=== PATIENT | female | born 1980 | race Caucasian/White ===

== ENCOUNTER 2016-12-25 11:32 | Emergency (ER) | payer BC ==
[2016-12-25 11:39] VITALS: BP 143/96; BMI 44.9
--- NOTE | 2016-12-25 11:52 | DR.GENAD ---
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 She denies a history of cardiac disease.She denies productive cough and fever. She denies a history of cigarette use. She sleeps on two to three pillows and can walk only a short distance before becoming SOB. Chief Complaint:: PT C/O DIFF BREATHING AND SOB. PT STATES SHE HAD A PAC PLACED TO LT LAST WEDNESDAY. PT STATES SHE HAS BEEN HAVING RT SIDED CHEST PAIN AND AND DIFF BREATHING AND TAKING A DEEP BREATH. PT STATES THE TROUBLE BREATHING HAS BEEN GOING SINCE WEDNESDAY. PT WENT TO PCP AND WAS TOLD TO GO TO THE ER HE WAS WORRIED ABOUT A POSSIBLE BLOT. - Source History Provided: Patient - Mode of Arrival Mode of Arrival: Ambulatory - Timing Onset of Chief Complaint: 12/18/16 PMH - PMH Past Medical History: Yes Past Medical History: Asthma, COPD, Dyslipidemia, Headaches, Hypertension Past Medical History Comment: MITRAL VALVE PROLAPSE, INSOMMNIA Past Surgical History: Yes Surgical History: Cholecystectomy, Ortho Surgery, Tonsillectomy Past Surgical History Comment: PAC (LT CW), KNEE AND FOOT, LAP BAND, HERNIA REPAIR X3 - Family History History of Family Medical Conditions: Yes Family Medical History: Diabetes Mellitus, Cancer, [place], Coronary Artery Disease, Heart Failure, Sudden Cardiac , Hypertension - Social History Does any household member use tobacco: No Alcohol Use: None Do you use any recreational Drugs:: No Lives With: Family Lives Where: Home - infectious screening In the last 2 months have you had wt loss of >10#?: NO Have you had fever, night sweats or hemotysis?: No Have you traveled outside the country in the last 6 months?: No Isolation: Standard ROS - Review of Systems Constitutional: negative: Diaphoresis Eyes: No Symptoms Reported ENTM: No Symptoms Reported Respiratoy: No Symptoms Reported, Short of Breath Cardiovascular: No Symptoms Reported Gastrointestinal/Abdominal: No Symptoms Reported Genitourinary: No Symptoms Reported Neurological: No Symptoms Reported Musculoskeletal: No Symptoms Reported Integumentary: No Symptoms Reported Hematologic/Lymphatic: No Symptoms Reported Endocrine: No Symptoms Reported Psychiatric: No Symptoms Reported All Other Systems: Reviewed and Negative PE - Vital Signs Vitals: Temperature 97.5 F Pulse Rate 72 Respiratory Rate 22 Blood Pressure 143/96 O2 Sat by Pulse Oximetry 100 - General Limitations: No Limitations General Appearance: Alert, In No Apparent Distress - Head Head Exam: Normal Inspection, Atraumatic - Eyes Eye exam: Normal Appearance, PERRL, EOMI - ENT ENT Exam: Normal Exam External Ear Exam: Normal External Inspection TM/Canal Exam: Bilateral Normal Nose Exam: Normal Nose Exam Mouth Exam: Normal Inspection Throat Exam: Normal Inspection - Neck Neck Exam: Normal Inspection, Full ROM - Chest Chest Inspection: Normal Inspection - Respiratory Respiratory Exam: Normal Lung Sounds Bilat Respiratory Exam: Bilateral Clear to Auscultation - Cardiovascular Cardiovascular Exam: Regular Rate, Normal Rhythm - Abdominal Exam Abdominal Exam: Normal Inspection Abdominal Tenderness: negative: RUQ, RLQ, LUQ, LLQ, Epigastrium, Suprapubic, Diffuse, Mild, Moderate, Severe, Other - Extremities Extremities Exam: Normal Inspection, Full ROM - Back Back Exam: Normal Inspection - Psychiatric Psychiatric Exam: Normal Affect, Normal Mood, Agitated - Skin Skin Exam: Warm, Dry, Intact, Normal Color Course - Reevaluation 1st: Unchanged ROR - Labs Reviewed Laboratory Results Reviewed?: Yes (D Dimer 842) Result Diagrams: 12/25/16 12:05 12/25/16 12:05 Laboratory: WBC 5.4 X10^3/uL (3.6-10.0) 12/25/16 12:05 RBC 5.19 X10^6/uL (3.5-5.4) 12/25/16 12:05 Hgb 13.8 g/dL (12.0-16.0) 12/25/16 12:05 Hct 41.7 % (36.0-47.0) 12/25/16 12:05 MCV 80.3 fL (80.0-100.0) 12/25/16 12:05 MCH 26.6 pg (27.0-34.0) L 12/25/16 12:05 MCHC 33.2 g/dL (33.0-35.0) 12/25/16 12:05 RDW 14.5 % (11.6-16.5) 12/25/16 12:05 Plt Count 291 X10^3/uL (150.0-450.0) 12/25/16 12:05 MPV 7.2 fL (7.4-11.0) L 12/25/16 12:05 Neut % 64.4 % (42.0-75.0) 12/25/16 12:05 Lymph % 25.2 % (21.0-51.0) 12/25/16 12:05 [place] % 7.4 % (0.0-13.0) 12/25/16 12:05 Eos % 2.4 % (0.9-2.9) 12/25/16 12:05 Baso % 0.6 % (0.2-1.0) 12/25/16 12:05 Neut # 3.5 x10^3/uL (2.2-4.8) 12/25/16 12:05 Lymph # 1.3 X10^3/uL (1.3-2.9) 12/25/16 12:05 [place] # 0.4 x10^3/uL (0.3-0.8) 12/25/16 12:05 Eos # 0.1 x10^3/uL (0.0-0.2) 12/25/16 12:05 Baso # 0.0 X10^3/uL (0.0-0.1) 12/25/16 12:05 Absolute Nucleated RBC 0.0 /100WBC 12/25/16 12:05 D-Dimer 842 ng/mL (0-400) H* 12/25/16 12:05 Sodium 138 mmol/L (136-145) 12/25/16 12:05 Corrected Sodium TNP 12/25/16 12:05 Potassium 3.7 mmol/L (3.5-5.1) 12/25/16 12:05 Chloride 104 mmol/L (98-107) 12/25/16 12:05 Carbon Dioxide 26.3 mmol/L (21-32) 12/25/16 12:05 BUN 10 mg/dL (7-18) 12/25/16 12:05 Creatinine 0.97 mg/dL (0.55-1.02) 12/25/16 12:05 Est GFR (MDRD) Af Amer > 60 (>60) 12/25/16 12:05 Est GFR (MDRD) Non-Af > 60 (>60) 12/25/16 12:05 Glucose 93 mg/dL (65-99) 12/25/16 12:05 Calcium 8.7 mg/dL (8.5-10.1) 12/25/16 12:05 Corrected Calcium TNP 12/25/16 12:05 Total Bilirubin 0.50 mg/dL (0.2-1.0) 12/25/16 12:05 AST 11 Units/L (15-37) L 12/25/16 12:05 ALT 21 Units/L (12-78) 12/25/16 12:05 Alkaline Phosphatase 73 Units/L (46-116) 12/25/16 12:05 B-Natriuretic Peptide 17.2 pg/mL (0-79) 12/25/16 12:05 Total Protein 7.4 g/dL (6.4-8.2) 12/25/16 12:05 Albumin 3.6 g/dL (3.4-5.0) 12/25/16 12:05 Globulin 3.8 g/dL (2.5-4.5) 12/25/16 12:05 Albumin/Globulin Ratio 0.9 Ratio (1.1-2.1) L 12/25/16 12:05 - XRAY XRAY Interpreted by: Radiologist (Chest: No acute cardiopulmonary disease. CTA: There is no evidence for acute pulmonary thromboembolic disease. Examination of the mediastinum demonstrated no evidence for mediastinal masses, lymphadenopathy or hilar lumphadenopathy. No pleural effusions are identified. Those portions of the upper abdominal organs visualized were within normal limits. There is a properly oriented gastric lap bank present. No skelatal abnormailty is identified. Examination of the lungs burgos demonstrated no significant nodules, alveolar infiltrates, or masses. ) - Diagnosis Discharge Problem: Dyspnea, unspecified Qualifiers: Dyspnea type: dyspnea on exertion Qualified Code(s): R06.09 - Other forms of dyspnea - Discharge Plan Condition: Stable - Follow ups/Referrals Follow ups/Referrals: BRIAN SANFORD [Primary Care Provider] - 3 days - Instructions
[2016-12-25 12:15] LABS: BASOPHILS % (AUTO) 0.6 % (0.2-1.0); EOSINOPHILS # (AUTO) 0.1 x10^3/uL (0.0-0.2); EOSINOPHILS % (AUTO) 2.4 % (0.9-2.9); HEMATOCRIT 41.7 % (36.0-47.0); HEMOGLOBIN 13.8 g/dL (12.0-16.0); LYMPHOCYTES # (AUTO) 1.3 X10^3/uL (1.3-2.9); LYMPHOCYTES % (AUTO) 25.2 % (21.0-51.0); MEAN CORPUSCULAR HEMOGLOBIN 26.6 pg (27.0-34.0); MEAN CORPUSCULAR HGB CONC 33.2 g/dL (33.0-35.0); MEAN CORPUSCULAR VOLUME 80.3 fL (80.0-100.0); MEAN PLATELET VOLUME 7.2 fL (7.4-11.0); MONOCYTES # (AUTO) 0.4 x10^3/uL (0.3-0.8); MONOCYTES % (AUTO) 7.4 % (0.0-13.0); NEUTROPHILS # (AUTO) 3.5 x10^3/uL (2.2-4.8); NEUTROPHILS % (AUTO) 64.4 % (42.0-75.0); PLATELET COUNT 291 X10^3/uL (150.0-450.0); RED BLOOD COUNT 5.19 X10^6/uL (3.5-5.4); RED CELL DISTRIBUTION WIDTH 14.5 % (11.6-16.5); WHITE BLOOD COUNT 5.4 X10^3/uL (3.6-10.0)
[2016-12-25 12:26] LABS: ALANINE AMINOTRANSFERASE 21 Units/L (12-78); ALBUMIN 3.6 g/dL (3.4-5.0); ALKALINE PHOSPHATASE 73 Units/L (46-116); ASPARTATE AMINO TRANSFERASE 11 Units/L (15-37); BLOOD UREA NITROGEN 10 mg/dL (7-18); CALCIUM 8.7 mg/dL (8.5-10.1); CARBON DIOXIDE 26.3 mmol/L (21-32); CHLORIDE 104 mmol/L (98-107); CREATININE 0.97 mg/dL (0.55-1.02); SODIUM 138 mmol/L (136-145); TOTAL PROTEIN 7.4 g/dL (6.4-8.2); eGFR BLACK RACES > 60 (>60); eGFR NON BLACK RACES > 60 (>60)
--- NOTE | 2016-12-25 12:37 | RAD ---
HISTORY: Dyspnea Study: Chest PA and lateral Comparison: January 29, 2014 report Findings: The trachea is midline. The cardiac silhouette is upper limits normal in size. No congestive heart f ailure is noted.. The lungs are clear without focal infiltrate or effusion. The bony thorax is unre markable. There is a port present on the left. Its tip is likely just proximal to the junction of th e left innominate vein and superior vena cava. IMPRESSION: 1. No acute cardiopulmonary disease. Reported By:
[2016-12-25 12:44] LABS: D DIMER 842 ng/mL (0-400)
[2016-12-25 12:45] LABS: B-TYPE NATRIURETIC PEPTIDE 17.2 pg/mL (0-79)
[2016-12-25] MEDS ORDERED: NS 100 ML IV 100 ML IV ONE (13:27)
--- NOTE | 2016-12-25 14:39 | CT ---
HISTORY: Elevated D-dimer Study: CTA chest with contrast for pulmonary embolus Comparison: None Technique: Axial post-contrast images with coronal, sagittal, and 3 dimensional maximum intensity pro jection images obtained in evaluated . Dose reduction procedures were used with MA/kv adjusted for nasrin dy size. Findings: There is no evidence for acute pulmonary thromboembolic disease. Examination of the mediastinum demon strated no evidence for mediastinal masses, lymphadenopathy, or hilar lymphadenopathy. No pleural eff usions are identified. Those portions of the upper abdominal organs visualized were within normal aragon its. There is a properly oriented gastric lap band present. No skeletal abnormality is identified. Ex amination of the lung burgos demonstrated no significant nodules, alveolar infiltrates, or masses. The initial injection was made through a left-sided power port. This resulted in pain and swelling ar ound the power port resected coal. Contrast can be seen in the wrist septal and a power port and ther e is some extravasation of contrast into the subcutaneous tissues surrounding the port. Subsequently and alternate route of contrast injection was successfully used and the study completed. The emergenc y room was advised of the power port malfunction. IMPRESSION: No evidence for acute pulmonary thromboembolic disease Lungs clear Reported By:
== END 2016-12-25 15:28 | disposition home or self-care (01) ==
LOC: ER 11:49
DX: R06.09 Other forms of dyspnea (principal); R79.1 Abnormal coagulation profile
CPT/HCPCS: 36415; 71020; 71275; 80053; 83880; 85025; 85378; 96365; 99283; A4222

== ENCOUNTER → 2017-07-08 | Outpatient (CLI) | payer BC | LOC: RAD 13:13 | PROVIDERS: ATTEND Internal Medicine Cardiovascular Disease | DX: I34.0 Nonrheumatic mitral (valve) insufficiency (principal) | CPT/HCPCS: 93306 ==

== ENCOUNTER 2019-02-17 10:16 | Observation (INO) ==
[2019-02-17 10:22] VITALS: BMI 45.8
[2019-02-17] MEDS ORDERED: SOLU-Medrol 125 MG VIAL IVP ONE ×2 (10:31→20:58)
[2019-02-17] MEDS ORDERED: SOLU-Medrol 125 MG VIAL ONE ×2 (10:31→21:09)
[2019-02-17] MEDS ORDERED: MAGNESIUM SULFATE 1 GRAM/100 mL PREMIX 1 G/100 ML BAG IV ONE ×2 (10:42→10:46)
--- NOTE | 2019-02-17 10:52 | DR.GENAD ---
HPI Time Seen Time Seen by Provider: 02/17/19 10:46 PCP Primary Care Physician: lindy Complaint/Symptoms Chief Complaint:: patient stated she has been coughing and wheezing for 5 days. stated last time she was like this she got a mag rider and solumedrol. pt stated she could not be admited due to kids Source History Provided: Patient Mode of Arrival Mode of Arrival: Ambulatory Timing Onset of Chief Complaint: 02/17/19 PMH PMH Past Medical History: Yes Past Medical History: Asthma, COPD, Dyslipidemia, Headaches and Hypertension Past Surgical History: Yes Surgical History: Cholecystectomy, Ortho Surgery and Tonsillectomy Family History History of Family Medical Conditions: Yes Family Medical History: Diabetes Mellitus, Cancer, [place], Coronary Artery Disease, Heart Failure, Sudden Cardiac and Hypertension Social History Does patient currently use any type of tobacco product: No Have you used tobacco products in the last 12 months: No Type of Tobacco Use: None Does any household member use tobacco: No Alcohol Use: None Do you use any recreational Drugs:: No Lives With: Family Lives Where: Home infectious screening In the last 2 months have you had wt loss of >10#?: NO Have you had fever, night sweats or hemotysis?: No Have you traveled outside the country in the last 6 months?: No Isolation: Standard PE Vital Signs Vitals: Temperature 98.6 F Pulse Rate [Right Brachial] 70 Pulse Rate 77 Respiratory Rate 20 Blood Pressure [Right Arm] 139/85 Blood Pressure 143/96 O2 Sat by Pulse Oximetry 98 ROR Labs Reviewed Result Diagrams: 02/17/19 10:55 02/17/19 10:55 Laboratory: WBC 6.1 X10^3/uL (3.6-10.0) 02/17/19 10:55 RBC 5.07 X10^6/uL (3.5-5.4) 02/17/19 10:55 Hgb 13.1 g/dL (12.0-16.0) 02/17/19 10:55 Hct 40.1 % (36.0-47.0) 02/17/19 10:55 MCV 79.1 fL (80.0-100.0) L 02/17/19 10:55 MCH 25.8 pg (27.0-34.0) L 02/17/19 10:55 MCHC 32.7 g/dL (33.0-35.0) L 02/17/19 10:55 RDW 15.6 % (11.6-16.5) 02/17/19 10:55 Plt Count 411 X10^3/uL (150.0-450.0) 02/17/19 10:55 Plt Count Comment Adequate (ADEQUATE) 02/17/19 10:55 MPV 6.8 fL (7.4-11.0) L 02/17/19 10:55 Neut % (Auto) 70.2 % (42.0-75.0) 02/17/19 10:55 Lymph % (Auto) 21.3 % (21.0-51.0) 02/17/19 10:55 [place] % (Auto) 7.5 % (0.0-13.0) 02/17/19 10:55 Eos % (Auto) 0.2 % (0.9-2.9) L 02/17/19 10:55 Baso % (Auto) 0.8 % (0.2-1.0) 02/17/19 10:55 Neut # (Auto) 4.3 x10^3/uL (2.2-4.8) 02/17/19 10:55 Lymph # (Auto) 1.3 X10^3/uL (1.3-2.9) 02/17/19 10:55 [place] # (Auto) 0.5 x10^3/uL (0.3-0.8) 02/17/19 10:55 Eos # (Auto) 0.0 x10^3/uL (0.0-0.2) 02/17/19 10:55 Baso # (Auto) 0.0 X10^3/uL (0.0-0.1) 02/17/19 10:55 Absolute Nucleated RBC 0.0 /100WBC 02/17/19 10:55 Plt Morphology Comment Normal (NORMAL) 02/17/19 10:55 RBC Morphology Abnormal (NORMAL) A 02/17/19 10:55 Hypochromasia Slight A 02/17/19 10:55 Sample Site Right radial 02/17/19 12:36 ABG pH 7.580 (7.35-7.45) H* 02/17/19 12:36 ABG pCO2 25.0 mmHg (35.0-45.0) L 02/17/19 12:36 ABG pO2 133.0 mmHg (80.0-100.0) H 02/17/19 12:36 ABG HCO3 23.4 mmol/L (22-26) 02/17/19 12:36 ABG O2 Saturation 99.0 % (90-100) 02/17/19 12:36 ABG Base Excess 2.6 mmol/L (-2.0-2.0) H 02/17/19 12:36 Adam Test Pos 02/17/19 12:36 A-a Gradient 35.0 mmHg 02/17/19 12:36 FiO2 28.0 02/17/19 12:36 Blood Gas Comments Alysha well aw 02/17/19 12:36 Sodium 138 mmol/L (136-145) 02/17/19 10:55 Corrected Sodium TNP 02/17/19 10:55 Potassium 3.6 mmol/L (3.5-5.1) 02/17/19 10:55 Chloride 102 mmol/L (98-107) 02/17/19 10:55 Carbon Dioxide 26.2 mmol/L (21-32) 02/17/19 10:55 BUN 19 mg/dL (7-18) H 02/17/19 10:55 Creatinine 1.02 mg/dL (0.55-1.02) 02/17/19 10:55 Est GFR (MDRD) Af Amer > 60 (>60) 02/17/19 10:55 Est GFR (MDRD) Non-Af > 60 (>60) 02/17/19 10:55 Glucose 103 mg/dL (65-99) H 02/17/19 10:55 Calcium 9.1 mg/dL (8.5-10.1) 02/17/19 10:55 Corrected Calcium TNP 02/17/19 10:55 Magnesium 3.3 mg/dL (1.7-2.9) H 02/17/19 10:55 Total Bilirubin 0.30 mg/dL (0.2-1.0) 02/17/19 10:55 AST 16 Units/L (15-37) 02/17/19 10:55 ALT 26 Units/L (12-78) 02/17/19 10:55 Alkaline Phosphatase 95 Units/L (46-116) 02/17/19 10:55 Total Protein 7.7 g/dL (6.4-8.2) 02/17/19 10:55 Albumin 4.0 g/dL (3.4-5.0) 02/17/19 10:55 Globulin 3.7 g/dL (2.5-4.5) 02/17/19 10:55 Albumin/Globulin Ratio 1.1 Ratio (1.1-2.1) 02/17/19 10:55 Opioid Opioid Risk Tool Total: 0 Total Score Risk Category: Low Risk Copyright: Frank COELHO predicting aberrant behaviors Diagnosis Discharge Problem: Bronchitis Acute asthma exacerbation Qualifiers: Asthma severity: moderate Asthma persistence: persistent Qualified Code(s): J45.41 - Moderate persistent asthma with (acute) exacerbation Instructions Instructions: Acute Bronchitis, Adult, [id number] Asthma Attack Prevention, Adult Forms: Excuse From Work Patient Portal
[2019-02-17 11:05] LABS: BASOPHILS % (AUTO) 0.8 % (0.2-1.0); EOSINOPHILS % (AUTO) 0.2 % (0.9-2.9); HEMATOCRIT 40.1 % (36.0-47.0); HEMOGLOBIN 13.1 g/dL (12.0-16.0); LYMPHOCYTES # (AUTO) 1.3 X10^3/uL (1.3-2.9); LYMPHOCYTES % (AUTO) 21.3 % (21.0-51.0); MEAN CORPUSCULAR HEMOGLOBIN 25.8 pg (27.0-34.0); MEAN CORPUSCULAR HGB CONC 32.7 g/dL (33.0-35.0); MEAN CORPUSCULAR VOLUME 79.1 fL (80.0-100.0); MEAN PLATELET VOLUME 6.8 fL (7.4-11.0); MONOCYTES # (AUTO) 0.5 x10^3/uL (0.3-0.8); MONOCYTES % (AUTO) 7.5 % (0.0-13.0); NEUTROPHILS # (AUTO) 4.3 x10^3/uL (2.2-4.8); NEUTROPHILS % (AUTO) 70.2 % (42.0-75.0); PLATELET COUNT 411 X10^3/uL (150.0-450.0); RED BLOOD COUNT 5.07 X10^6/uL (3.5-5.4); RED CELL DISTRIBUTION WIDTH 15.6 % (11.6-16.5); WHITE BLOOD COUNT 6.1 X10^3/uL (3.6-10.0)
[2019-02-17 11:16] LABS: HYPOCHROMASIA SLIGHT; PLATELET MORPHOLOGY COMMENT NORMAL (NORMAL)
[2019-02-17 11:17] LABS: ALANINE AMINOTRANSFERASE 26 Units/L (12-78); ALKALINE PHOSPHATASE 95 Units/L (46-116); ASPARTATE AMINO TRANSFERASE 16 Units/L (15-37); BLOOD UREA NITROGEN 19 mg/dL (7-18); CALCIUM 9.1 mg/dL (8.5-10.1); CARBON DIOXIDE 26.2 mmol/L (21-32); CHLORIDE 102 mmol/L (98-107); CREATININE 1.02 mg/dL (0.55-1.02); SODIUM 138 mmol/L (136-145); TOTAL PROTEIN 7.7 g/dL (6.4-8.2); eGFR NON BLACK RACES > 60 (>60)
--- NOTE | 2019-02-17 12:10 | RAD ---
HISTORY: 38-year-old female with history of asthma and COPD presents with stridor. Study: Frontal view of the chest. Comparison: CT chest 11/04/2018 Findings: Interval placement right chest chemo port via subclavian approach with distal tip overlying the superior cavoatrial junction. Partially imaged laparoscopic gastric band. The trachea is midline. The cardiac silhouette is stable. The lungs are clear without focal consolidation, effusion or pneumothorax. Soft tissues are unremarkable. Osseous structures are unremarkable. IMPRESSION: 1. No acute cardiopulmonary disease. Reported By:
[2019-02-17] MEDS ORDERED: DUONEB 0.5 MG/3 MG ONE ×2 (12:34→22:26)
[2019-02-17] MEDS ORDERED: DUONEB 0.5 MG/3 MG NEB ONE ×2 (12:38→20:58)
[2019-02-17 12:45] LABS: ABG BASE EXCESS 2.6 mmol/L (-2.0-2.0); ABG HCO3 23.4 mmol/L (22-26)
[2019-02-17 12:46] LABS: ABG ALLEN TEST POS
[2019-02-17] MEDS ORDERED: ROCEPHIN VIAL 1 GRAM IV ONE (13:37)
[2019-02-17] MEDS ORDERED: ROCEPHIN VIAL 1 GRAM ONE (14:03)
[2019-02-17] MEDS ORDERED: LASIX PO ONE (14:13)
[2019-02-17] MEDS ORDERED: LASIX ONE (14:14)
[2019-02-17] MEDS ORDERED: NS 1000 ML 1,000 ML IV ONE (20:46)
[2019-02-17] MEDS ORDERED: ZOFRAN INJ 4 MG VIAL IVP ONE (20:55)
[2019-02-17] MEDS ORDERED: TORADOL 30 MG VIAL IVP ONE (20:56)
[2019-02-17] MEDS ORDERED: ZOFRAN INJ 4 MG VIAL ONE (21:08)
[2019-02-17] MEDS ORDERED: NS 1000 ML 1,000 ML ONE (21:08)
[2019-02-17] MEDS ORDERED: TORADOL 30 MG VIAL ONE (21:09)
[2019-02-17 21:15] LABS: AMYLASE 37 Units/L (25-115); LIPASE 109 Units/L (73-393)
--- NOTE | 2019-02-17 21:39 | CT ---
CT head without contrast Indication: Dizziness, headache Technique: Helical CT images of the brain were obtained without IV contrast. Reformatted images in the coronal and sagittal planes were also generated for review. Comparison: 06/08/2014 Findings: Perez-white differentiation is maintained. No visible acute infarction is identified. There is no intracranial hemorrhage, focal or generalized edema, extra-axial collection or mass. Visualized paranasal sinuses and mastoid air cells are clear. Imaged extracranial structures are grossly unremarkable. Impression: No acute intracranial abnormality. Reported By:
--- NOTE | 2019-02-17 21:46 | RAD ---
Chest, 1 view Indication: Shortness of breath, dizziness Comparison: 12/25/2016 Findings: Cardiac silhouette is unremarkable. There are stable metallic hyperdensities overlying the left hemithorax. There is a right subclavian approach Port-A-Cath with tip overlying the SVC. Lungs are essentially clear without focal infiltrates or significant pleural effusion. Impression: No acute chest process. Reported By:
[2019-02-17 21:47] LABS: CKMB % 0.6 % (<4); CREATINE KINASE 164 Units/L (26-192); CREATINE KINASE MB < 1.0 ng/mL (0-4.0); TROPONIN I < 0.02 ng/mL (0-1.5)
[2019-02-17] MEDS ORDERED: REGLAN INJ 10 MG VIAL IVP STA (21:50)
[2019-02-17] MEDS ORDERED: REGLAN INJ 10 MG VIAL ONE (22:42)
[2019-02-17] MEDS ORDERED: BENADRYL INJ 50 MG VIAL IVP STA (22:45)
[2019-02-17] MEDS ORDERED: BENADRYL INJ 50 MG VIAL ONE (22:47)
[2019-02-17 23:06] LABS: ABG BASE EXCESS -0.5 mmol/L (-2.0-2.0); ABG HCO3 22.9 mmol/L (22-26)
[2019-02-17 23:07] LABS: ABG ALLEN TEST POS
[2019-02-17 23:24] LABS: CKMB % 0.7 % (<4); CREATINE KINASE 153 Units/L (26-192); CREATINE KINASE MB < 1.0 ng/mL (0-4.0); TROPONIN I < 0.02 ng/mL (0-1.5)
[2019-02-17] MEDS ORDERED: TYLENOL 325 MG TAB PO PRN (23:50)
[2019-02-17] MEDS ORDERED: TYLENOL 325 MG TAB PO ONE (23:54)
[2019-02-18 00:49] LABS: BILIRUBIN,URINE NEGATIVE (NEGATIVE); BLOOD/HEMOGLOBIN,URINE NEGATIVE (NEGATIVE); GLUCOSE, URINE NEGATIVE (NEGATIVE); KETONES,URINE NEGATIVE (NEGATIVE); LEUKOCYTE ESTERASE ,URINE NEGATIVE (NEGATIVE); NITRITES,URINE NEGATIVE (NEGATIVE); PROTEIN,URINE NEGATIVE (NEGATIVE); UROBILINOGEN,URINE NORMAL (NORMAL)
[2019-02-18] MEDS: DUONEB 0.5 MG/3 MG NEB SCH ×6 (00:49→21:12)
[2019-02-18 00:53] LABS: APPEARANCE,URINE CLEAR (CLEAR); COLOR,URINE YELLOW (YELLOW)
[2019-02-18] MEDS ORDERED: TORADOL 60 MG VIAL IM ONE (01:10)
[2019-02-18] MEDS ORDERED: NS 250 ML IV 250 ML IV ONE (05:26)
[2019-02-18 05:33] LABS: BASOPHILS % (AUTO) 0.1 % (0.2-1.0); HEMATOCRIT 38.5 % (36.0-47.0); HEMOGLOBIN 12.3 g/dL (12.0-16.0); LYMPHOCYTES # (AUTO) 0.6 X10^3/uL (1.3-2.9); MEAN CORPUSCULAR HEMOGLOBIN 25.4 pg (27.0-34.0); MEAN CORPUSCULAR HGB CONC 31.9 g/dL (33.0-35.0); MEAN CORPUSCULAR VOLUME 79.7 fL (80.0-100.0); MEAN PLATELET VOLUME 7.2 fL (7.4-11.0); MONOCYTES # (AUTO) 0.1 x10^3/uL (0.3-0.8); MONOCYTES % (AUTO) 1.1 % (0.0-13.0); NEUTROPHILS # (AUTO) 9.9 x10^3/uL (2.2-4.8); NEUTROPHILS % (AUTO) 92.8 % (42.0-75.0); PLATELET COUNT 380 X10^3/uL (150.0-450.0); RED BLOOD COUNT 4.83 X10^6/uL (3.5-5.4); RED CELL DISTRIBUTION WIDTH 15.6 % (11.6-16.5); WHITE BLOOD COUNT 10.6 X10^3/uL (3.6-10.0)
[2019-02-18] MEDS: FORTAZ or TAZICEF VIAL INJ 1 G in NS 100 ML IV + SPIKE MINIBAG* 100 ML IV SCH ×3 (05:36→21:29)
[2019-02-18 06:09] LABS: BAND NEUTROPHILS % 2 % (0-10); PLATELET MORPHOLOGY COMMENT NORMAL (NORMAL)
[2019-02-18 06:10] LABS: ALANINE AMINOTRANSFERASE 19 Units/L (12-78); ALBUMIN 3.5 g/dL (3.4-5.0); ALKALINE PHOSPHATASE 82 Units/L (46-116); ASPARTATE AMINO TRANSFERASE 12 Units/L (15-37); BLOOD UREA NITROGEN 19 mg/dL (7-18); CARBON DIOXIDE 23.9 mmol/L (21-32); CHLORIDE 104 mmol/L (98-107); CKMB % 0.8 % (<4); COR NA(FOR HYPERGLY) 141 mmol/L (136-145); CREATINE KINASE 123 Units/L (26-192); CREATINE KINASE MB < 1.0 ng/mL (0-4.0); CREATININE 0.87 mg/dL (0.55-1.02); HYPOCHROMASIA SLIGHT; SODIUM 140 mmol/L (136-145); TROPONIN I < 0.02 ng/mL (0-1.5); eGFR NON BLACK RACES > 60 (>60)
[2019-02-18] MEDS ORDERED: POTASSIUM CHL 40 MEQ/NS 0.45% 500 ML IV PRN (06:23)
[2019-02-18] MEDS ORDERED: K-RIDER 10 MEQ/NS 100 ML 10 MEQ/100 ML BAG IV PRN (06:23)
[2019-02-18] MEDS ORDERED: POTASSIUM CHL 60 MEQ/NS 0.45% 500 ML IV PRN (06:23)
[2019-02-18] MEDS ORDERED: POTASSIUM CHLORIDE LIQ 20 MEQ UDC PO PRN (06:23)
[2019-02-18] MEDS ORDERED: MICRO K EXTEN CAP 10 MEQ PO PRN (06:23)
[2019-02-18] MEDS ORDERED: KLOR-CON PO PRN (06:23)
[2019-02-18] MEDS ORDERED: K-DUR TAB 20 MEQ PO PRN (06:23)
--- NOTE | 2019-02-18 08:41 | DR.H&P ---
H&P History & Physical for Day of: H&P Date: 02/18/19 Chief Complaint Chief Complaint: Wheezing, shortness of breath Allergies Allergies Allergy/AdvReac Type Severity Reaction Status Date / Time levofloxacin [From Levaquin] Allergy Verified 02/17/19 10:17 sulfamethoxazole Allergy Verified 02/17/19 10:17 [From Bactrim] trimethoprim [From Bactrim] Allergy Verified 02/17/19 10:17 History of Present Illness History of Present Illness: Pt is a 38 yo f pmhx of Asthma, HTN(pHTN), ERLINDA/MDD presenting after having wheezing and shortness of breath. She reports sx are similar to her asthma exacerbations she gets 2-3 times a year that require hospitalization. Reports cough. Denies fevers, chills, chest pain, abdominal pain, edema. Past Medical History Past Medical History: Asthma, COPD, Dyslipidemia, Headaches and Hypertension Past Surgical History Surgical History: Cholecystectomy, Tonsillectomy and Other Family History Family Medical History: Diabetes Mellitus, Cancer, [place], Coronary Artery Disease, Heart Failure, Sudden Cardiac and Hypertension Social History Does patient currently use any type of tobacco product: No Have you used tobacco products in the last 12 months: No Type of Tobacco Use: None Does any household member use tobacco: No Alcohol Use: None Drug Use: None Medications Home Medications: levofloxacin [From Levaquin] Allergy (Verified 02/17/19 10:17) sulfamethoxazole [From Bactrim] Allergy (Verified 02/17/19 10:17) trimethoprim [From Bactrim] Allergy (Verified 02/17/19 10:17) CONTINUE taking the following medications aripiprazole [Abilify] 5 mg PO DAILY 02/17/19 [History] diazepam [Valium] 5 mg PO HS 02/17/19 [History] diltiazem HCl [Cartia XT] 240 mg PO DAILY 02/17/19 [History] diphenhydramine HCl [Benadryl] 25 mg PO QHS 02/17/19 [History] duloxetine [Cymbalta] 60 mg PO DAILY 02/17/19 [History] lisinopril [Zestril] 2.5 mg PO DAILY 02/17/19 [History] meloxicam [Mobic] 15 mg PO DAILY 02/17/19 [History] mepolizumab [Nucala] 100 mg SUBCUT MONTHLY 02/17/19 [History] pramipexole [Mirapex] 0.5 mg PO HS 02/17/19 [History] Labs Result Diagrams: 02/18/19 05:04 02/18/19 05:04 Labs: Laboratory WBC 10.6 X10^3/uL (3.6-10.0) H 02/18/19 05:04 RBC 4.83 X10^6/uL (3.5-5.4) 02/18/19 05:04 Hgb 12.3 g/dL (12.0-16.0) 02/18/19 05:04 Hct 38.5 % (36.0-47.0) 02/18/19 05:04 MCV 79.7 fL (80.0-100.0) L 02/18/19 05:04 MCH 25.4 pg (27.0-34.0) L 02/18/19 05:04 MCHC 31.9 g/dL (33.0-35.0) L 02/18/19 05:04 RDW 15.6 % (11.6-16.5) 02/18/19 05:04 Plt Count 380 X10^3/uL (150.0-450.0) 02/18/19 05:04 Plt Count Comment Adequate (ADEQUATE) 02/18/19 05:04 MPV 7.2 fL (7.4-11.0) L 02/18/19 05:04 Neut % (Auto) 92.8 % (42.0-75.0) H 02/18/19 05:04 Lymph % (Auto) 6.0 % (21.0-51.0) L 02/18/19 05:04 [place] % (Auto) 1.1 % (0.0-13.0) 02/18/19 05:04 Eos % (Auto) 0.0 % (0.9-2.9) L 02/18/19 05:04 Baso % (Auto) 0.1 % (0.2-1.0) L 02/18/19 05:04 Neut # (Auto) 9.9 x10^3/uL (2.2-4.8) H 02/18/19 05:04 Lymph # (Auto) 0.6 X10^3/uL (1.3-2.9) L 02/18/19 05:04 [place] # (Auto) 0.1 x10^3/uL (0.3-0.8) L 02/18/19 05:04 Eos # (Auto) 0.0 x10^3/uL (0.0-0.2) 02/18/19 05:04 Baso # (Auto) 0.0 X10^3/uL (0.0-0.1) 02/18/19 05:04 Absolute Nucleated RBC 0.0 /100WBC 02/18/19 05:04 Total Counted 100 02/18/19 05:04 Neutrophils % (Manual) 90 % (39-76) H 02/18/19 05:04 Band Neutrophils % 2 % (0-10) 02/18/19 05:04 Lymphocytes % (Manual) 5 % (13-43) L 02/18/19 05:04 Monocytes % (Manual) 3 % (4-9) L 02/18/19 05:04 Plt Morphology Comment Normal (NORMAL) 02/18/19 05:04 RBC Morphology Abnormal (NORMAL) A 02/18/19 05:04 Hypochromasia Slight A 02/18/19 05:04 D-Dimer 182 ng/mL (0-400) 02/17/19 20:59 Sample Site Rrad 02/17/19 23:04 ABG pH 7.450 (7.35-7.45) 02/17/19 23:04 ABG pCO2 33.0 mmHg (35.0-45.0) L 02/17/19 23:04 ABG pO2 66.0 mmHg (80.0-100.0) L 02/17/19 23:04 ABG HCO3 22.9 mmol/L (22-26) 02/17/19 23:04 ABG O2 Saturation 94.0 % (90-100) 02/17/19 23:04 ABG Base Excess -0.5 mmol/L (-2.0-2.0) 02/17/19 23:04 Adam Test Pos 02/17/19 23:04 A-a Gradient 42.0 mmHg 02/17/19 23:04 FiO2 21.0 02/17/19 23:04 Blood Gas Comments Alysha abg well-mtf 02/17/19 23:04 Sodium 140 mmol/L (136-145) 02/18/19 05:04 Corrected Sodium 141 mmol/L (136-145) 02/18/19 05:04 Potassium 3.6 mmol/L (3.5-5.1) 02/18/19 05:04 Chloride 104 mmol/L (98-107) 02/18/19 05:04 Carbon Dioxide 23.9 mmol/L (21-32) 02/18/19 05:04 BUN 19 mg/dL (7-18) H 02/18/19 05:04 Creatinine 0.87 mg/dL (0.55-1.02) 02/18/19 05:04 Est GFR (MDRD) Af Amer > 60 (>60) 02/18/19 05:04 Est GFR (MDRD) Non-Af > 60 (>60) 02/18/19 05:04 Glucose 160 mg/dL (65-99) H 02/18/19 05:04 POC Glucose (mg/dL) 158 mg/dL (65-99) H 02/18/19 05:23 Calcium 8.0 mg/dL (8.5-10.1) L 02/18/19 05:04 Corrected Calcium TNP 02/18/19 05:04 Magnesium 2.4 mg/dL (1.7-2.9) 02/18/19 05:04 Total Bilirubin 0.20 mg/dL (0.2-1.0) 02/18/19 05:04 AST 12 Units/L (15-37) L 02/18/19 05:04 ALT 19 Units/L (12-78) 02/18/19 05:04 Alkaline Phosphatase 82 Units/L (46-116) 02/18/19 05:04 Creatine Kinase 123 Units/L (26-192) 02/18/19 05:04 CK-MB (CK-2) < 1.0 ng/mL (0-4.0) 02/18/19 05:04 CK/CKMB % Calc 0.8 % (<4) 02/18/19 05:04 Troponin I < 0.02 ng/mL (0-1.5) 02/18/19 05:04 Total Protein 7.0 g/dL (6.4-8.2) 02/18/19 05:04 Albumin 3.5 g/dL (3.4-5.0) 02/18/19 05:04 Globulin 3.5 g/dL (2.5-4.5) 02/18/19 05:04 Albumin/Globulin Ratio 1.0 Ratio (1.1-2.1) L 02/18/19 05:04 Amylase 37 Units/L (25-115) 02/17/19 20:59 Lipase 109 Units/L (73-393) 02/17/19 20:59 Specimen Type Clean catch urine 02/18/19 00:20 Urine Color Yellow (YELLOW) 02/18/19 00:20 Urine Appearance Clear (CLEAR) 02/18/19 00:20 Urine pH 5.0 (5.0 - 8.0) 02/18/19 00:20 Ur Specific [place] 1.015 (1.000-1.030) 02/18/19 00:20 Urine Protein Negative (NEGATIVE) 02/18/19 00:20 Urine Glucose (UA) Negative (NEGATIVE) 02/18/19 00:20 Urine Ketones Negative (NEGATIVE) 02/18/19 00:20 Urine Occult Blood Negative (NEGATIVE) 02/18/19 00:20 Urine Nitrite Negative (NEGATIVE) 02/18/19 00:20 Urine Bilirubin Negative (NEGATIVE) 02/18/19 00:20 Urine Urobilinogen Normal (NORMAL) 02/18/19 00:20 Ur Leukocyte Esterase Negative (NEGATIVE) 02/18/19 00:20 Urine Opiates Screen Negative (NEG=<300) 02/18/19 00:20 Urine Methadone Screen Negative (NEG=<300) 02/18/19 00:20 Ur Barbiturates Screen Negative (NEG=<200) 02/18/19 00:20 Ur Phencyclidine Scrn Negative (NEG=<25) 02/18/19 00:20 Ur Amphetamines Screen Negative (NEG=<1000) 02/18/19 00:20 U Benzodiazepines Scrn Positive (NEG=<200) A 02/18/19 00:20 Urine Cocaine Screen Negative (NEG=<300) 02/18/19 00:20 U Marijuana (THC) Screen Negative (NEG=<50) 02/18/19 00:20 Review of Systems Constitutional: denies Fever and Chills Eyes: No Symptoms Reported ENT: Nose Congestion Respiratory: Cough, Shortness of Breath and Wheezing Cardiovascular: No Symptoms Reported Gastrointestinal: No Symptoms Reported Genitourinary: No Symptoms Reported Musculoskeletal: No Symptoms Reported Skin: No Symptoms Reported Neurological: No Symptoms Reported Physical Exam Vital Signs: Temperature 97.5 F Pulse Rate [Right Brachial] 70 Pulse Rate 82 Respiratory Rate 20 Blood Pressure [Left Arm] 129/74 Blood Pressure [Right Arm] 139/85 Blood Pressure 150/63 O2 Sat by Pulse Oximetry 96 Oriented: Normal Eyes: Normal Ear: Normal Nose: Normal Throat: Normal Respiratory: Wheezes Throughout Cardiovascular: Normal : Normal Auscultation: Bowel Sounds: Normal Tenderness: Normal Skin: Normal Musculoskeletal: Normal Psychiatric: Normal Mood Description: Calm Speech Pattern: Clear Assessment/Plan (1) Acute asthma exacerbation: Qualifiers: Asthma persistence: persistent Asthma severity: moderate Qualified Code(s): J45.41 - Moderate persistent asthma with (acute) exacerbation Status: Acute Plan: IV Solumedrol q8h. IV Fortaz 1g q8h. CXR and CT Chest negative. Continue Duonebs and weaning O2 protocol Continue to monitor. (2) Restless leg: Status: Acute (3) MDD (major depressive disorder): Status: Acute (4) ERLINDA (generalized anxiety disorder): Status: Acute (5) Insomnia: Status: Acute (6) Osteoarthritis: Status: Acute
[2019-02-18] MEDS: SOLU-Medrol 40 MG VIAL IVP SCH ×2 (09:36→17:36)
[2019-02-18 11:49] LABS: CKMB % 0.9 % (<4); CREATINE KINASE 113 Units/L (26-192); CREATINE KINASE MB < 1.0 ng/mL (0-4.0); TROPONIN I < 0.02 ng/mL (0-1.5)
[2019-02-18] MEDS: CYMBALTA PO SCH (11:56)
[2019-02-18] MEDS: ROBITUSSIN DM PO PRN ×3 (11:56→21:28)
[2019-02-18] MEDS: COREG TAB 12.5 MG PO SCH ×2 (11:57→21:26)
[2019-02-18] MEDS: MOBIC TAB 15 MG PO SCH (11:57)
[2019-02-18] MEDS: ZESTRIL TAB 5 MG PO SCH (11:57)
[2019-02-18] MEDS: CARDIZEM CD 240 MG 24-HR PO SCH (11:57)
[2019-02-18] MEDS: TUSSIONEX PENNKINETIC SUSP PO PRN (15:12)
[2019-02-18] MEDS: MIRAPEX TAB 1 MG PO SCH (21:14)
[2019-02-18] MEDS: VALIUM PO SCH (21:27)
[2019-02-18] MEDS ORDERED: BENADRYL CAP 50 MG PO PRN (21:55)
[2019-02-18] MEDS ORDERED: BENADRYL CAP/TAB 25 MG PO ONE (22:19)
[2019-02-19] MEDS: DUONEB 0.5 MG/3 MG NEB SCH ×6 (00:57→21:21)
[2019-02-19] MEDS: SOLU-Medrol 40 MG VIAL IVP SCH ×3 (01:05→16:47)
[2019-02-19 05:35] LABS: BLOOD UREA NITROGEN 26 mg/dL (7-18); CALCIUM 8.2 mg/dL (8.5-10.1); CARBON DIOXIDE 23.4 mmol/L (21-32); CHLORIDE 105 mmol/L (98-107); COR NA(FOR HYPERGLY) 141 mmol/L (136-145); CREATININE 0.89 mg/dL (0.55-1.02); SODIUM 140 mmol/L (136-145); eGFR NON BLACK RACES > 60 (>60)
[2019-02-19] MEDS: FORTAZ or TAZICEF VIAL INJ 1 G in NS 100 ML IV + SPIKE MINIBAG* 100 ML IV SCH ×3 (06:29→21:19)
[2019-02-19] MEDS: TUSSIONEX PENNKINETIC SUSP PO PRN ×2 (06:30→21:19)
[2019-02-19] MEDS: MOBIC TAB 15 MG PO SCH (08:48)
[2019-02-19] MEDS: CARDIZEM CD 240 MG 24-HR PO SCH (08:49)
[2019-02-19] MEDS: CYMBALTA PO SCH (08:49)
[2019-02-19] MEDS: COREG TAB 12.5 MG PO SCH ×2 (08:49→21:19)
[2019-02-19] MEDS: ZESTRIL TAB 5 MG PO SCH (08:49)
[2019-02-19] MEDS: ABILIFY PO SCH (08:50)
[2019-02-19] MEDS ORDERED: TORADOL 60 MG VIAL IM ONE (09:43)
--- NOTE | 2019-02-19 09:51 | PCM.PROG ---
Progress Note Progress Note for Day of Date of Exam: 02/19/19 Subjective Subjective: Pt is a 38 yo f pmhx of Asthma, HTN(pHTN), ERLINDA/MDD presenting after having wheezing and shortness of breath. She reports sx are similar to her asthma exacerbations she gets 2-3 times a year that require hospitalization. Reports cough. Denies fevers, chills, chest pain, abdominal pain, edema. -Pt reports improvement in cough today but still having some tightness of chest from coughing yesterday and wheezing. She states she was able to be on RA briefly and pulse ox was at 92%. She would like to go home but feels like she needs another day. Past Medical Family Social History Past Med/Fam/Surg Hx: No changes since H&P Allergies: Allergies levofloxacin [From Levaquin] Allergy (Verified 02/17/19 10:17) sulfamethoxazole [From Bactrim] Allergy (Verified 02/17/19 10:17) trimethoprim [From Bactrim] Allergy (Verified 02/17/19 10:17) Review of Systems ROS: No change since H&P Vital Signs and I&O's Vital Signs: Temperature 97.6 F Pulse Rate [Right Brachial] 63 Pulse Rate 87 Respiratory Rate 20 Blood Pressure [Left Arm] 151/74 Blood Pressure [Right Arm] 139/85 Blood Pressure 150/63 O2 Sat by Pulse Oximetry 98 Intake and Output: Intake & Output 02/16/19 02/17/19 02/18/19 02/19/19 23:59 23:59 23:59 23:59 Intake Total 1270 / 1270 0 / 0 Balance 1270 / 1270 0 / 0 Physical Exam Oriented: Normal Eyes: Normal Ear: Normal Nose: Normal Throat: Normal Respiratory: OTHER (mild end expiratory wheezing. ); negative Rales and Rhonchi Cardiovascular: Normal : Normal Auscultation: Bowel Sounds: Normal Tenderness: Normal Skin: Normal Musculoskeletal: Normal Psychiatric: Normal Mood Description: Calm Speech Pattern: Clear and Appropriate Laboratory and Diagnostics Result Diagrams: 02/18/19 05:04 02/19/19 04:15 Labs: 02/18/19 00:20 Urine,Clean Catch Urine Culture - Preliminary 02/18/19 10:58 Sputum - Expectorated Sputum Sputum Culture - Preliminary 02/18/19 10:58 Sputum - Expectorated Sputum - Final Laboratory WBC 10.6 X10^3/uL (3.6-10.0) H 02/18/19 05:04 RBC 4.83 X10^6/uL (3.5-5.4) 02/18/19 05:04 Hgb 12.3 g/dL (12.0-16.0) 02/18/19 05:04 Hct 38.5 % (36.0-47.0) 02/18/19 05:04 MCV 79.7 fL (80.0-100.0) L 02/18/19 05:04 MCH 25.4 pg (27.0-34.0) L 02/18/19 05:04 MCHC 31.9 g/dL (33.0-35.0) L 02/18/19 05:04 RDW 15.6 % (11.6-16.5) 02/18/19 05:04 Plt Count 380 X10^3/uL (150.0-450.0) 02/18/19 05:04 Plt Count Comment Adequate (ADEQUATE) 02/18/19 05:04 MPV 7.2 fL (7.4-11.0) L 02/18/19 05:04 Neut % (Auto) 92.8 % (42.0-75.0) H 02/18/19 05:04 Lymph % (Auto) 6.0 % (21.0-51.0) L 02/18/19 05:04 [place] % (Auto) 1.1 % (0.0-13.0) 02/18/19 05:04 Eos % (Auto) 0.0 % (0.9-2.9) L 02/18/19 05:04 Baso % (Auto) 0.1 % (0.2-1.0) L 02/18/19 05:04 Neut # (Auto) 9.9 x10^3/uL (2.2-4.8) H 02/18/19 05:04 Lymph # (Auto) 0.6 X10^3/uL (1.3-2.9) L 02/18/19 05:04 [place] # (Auto) 0.1 x10^3/uL (0.3-0.8) L 02/18/19 05:04 Eos # (Auto) 0.0 x10^3/uL (0.0-0.2) 02/18/19 05:04 Baso # (Auto) 0.0 X10^3/uL (0.0-0.1) 02/18/19 05:04 Absolute Nucleated RBC 0.0 /100WBC 02/18/19 05:04 Total Counted 100 02/18/19 05:04 Neutrophils % (Manual) 90 % (39-76) H 02/18/19 05:04 Band Neutrophils % 2 % (0-10) 02/18/19 05:04 Lymphocytes % (Manual) 5 % (13-43) L 02/18/19 05:04 Monocytes % (Manual) 3 % (4-9) L 02/18/19 05:04 Plt Morphology Comment Normal (NORMAL) 02/18/19 05:04 RBC Morphology Abnormal (NORMAL) A 02/18/19 05:04 Hypochromasia Slight A 02/18/19 05:04 D-Dimer 182 ng/mL (0-400) 02/17/19 20:59 Sample Site Rrad 02/17/19 23:04 ABG pH 7.450 (7.35-7.45) 02/17/19 23:04 ABG pCO2 33.0 mmHg (35.0-45.0) L 02/17/19 23:04 ABG pO2 66.0 mmHg (80.0-100.0) L 02/17/19 23:04 ABG HCO3 22.9 mmol/L (22-26) 02/17/19 23:04 ABG O2 Saturation 94.0 % (90-100) 02/17/19 23:04 ABG Base Excess -0.5 mmol/L (-2.0-2.0) 02/17/19 23:04 Adam Test Pos 02/17/19 23:04 A-a Gradient 42.0 mmHg 02/17/19 23:04 FiO2 21.0 02/17/19 23:04 Blood Gas Comments Alysha abg well-mtf 02/17/19 23:04 Sodium 140 mmol/L (136-145) 02/19/19 04:15 Corrected Sodium 141 mmol/L (136-145) 02/19/19 04:15 Potassium 4.1 mmol/L (3.5-5.1) 02/19/19 04:15 Chloride 105 mmol/L (98-107) 02/19/19 04:15 Carbon Dioxide 23.4 mmol/L (21-32) 02/19/19 04:15 BUN 26 mg/dL (7-18) H 02/19/19 04:15 Creatinine 0.89 mg/dL (0.55-1.02) 02/19/19 04:15 Est GFR (MDRD) Af Amer > 60 (>60) 02/19/19 04:15 Est GFR (MDRD) Non-Af > 60 (>60) 02/19/19 04:15 Glucose 145 mg/dL (65-99) H 02/19/19 04:15 POC Glucose (mg/dL) 134 mg/dL (65-99) H 02/19/19 06:15 Calcium 8.2 mg/dL (8.5-10.1) L 02/19/19 04:15 Corrected Calcium TNP 02/18/19 05:04 Magnesium 2.4 mg/dL (1.7-2.9) 02/18/19 05:04 Total Bilirubin 0.20 mg/dL (0.2-1.0) 02/18/19 05:04 AST 12 Units/L (15-37) L 02/18/19 05:04 ALT 19 Units/L (12-78) 02/18/19 05:04 Alkaline Phosphatase 82 Units/L (46-116) 02/18/19 05:04 Creatine Kinase 113 Units/L (26-192) 02/18/19 11:15 CK-MB (CK-2) < 1.0 ng/mL (0-4.0) 02/18/19 11:15 CK/CKMB % Calc 0.9 % (<4) 02/18/19 11:15 Troponin I < 0.02 ng/mL (0-1.5) 02/18/19 11:15 Total Protein 7.0 g/dL (6.4-8.2) 02/18/19 05:04 Albumin 3.5 g/dL (3.4-5.0) 02/18/19 05:04 Globulin 3.5 g/dL (2.5-4.5) 02/18/19 05:04 Albumin/Globulin Ratio 1.0 Ratio (1.1-2.1) L 02/18/19 05:04 Amylase 37 Units/L (25-115) 02/17/19 20:59 Lipase 109 Units/L (73-393) 02/17/19 20:59 Specimen Type Clean catch urine 02/18/19 00:20 Urine Color Yellow (YELLOW) 02/18/19 00:20 Urine Appearance Clear (CLEAR) 02/18/19 00:20 Urine pH 5.0 (5.0 - 8.0) 02/18/19 00:20 Ur Specific [place] 1.015 (1.000-1.030) 02/18/19 00:20 Urine Protein Negative (NEGATIVE) 02/18/19 00:20 Urine Glucose (UA) Negative (NEGATIVE) 02/18/19 00:20 Urine Ketones Negative (NEGATIVE) 02/18/19 00:20 Urine Occult Blood Negative (NEGATIVE) 02/18/19 00:20 Urine Nitrite Negative (NEGATIVE) 02/18/19 00:20 Urine Bilirubin Negative (NEGATIVE) 02/18/19 00:20 Urine Urobilinogen Normal (NORMAL) 02/18/19 00:20 Ur Leukocyte Esterase Negative (NEGATIVE) 02/18/19 00:20 Urine Opiates Screen Negative (NEG=<300) 02/18/19 00:20 Urine Methadone Screen Negative (NEG=<300) 02/18/19 00:20 Ur Barbiturates Screen Negative (NEG=<200) 02/18/19 00:20 Ur Phencyclidine Scrn Negative (NEG=<25) 02/18/19 00:20 Ur Amphetamines Screen Negative (NEG=<1000) 02/18/19 00:20 U Benzodiazepines Scrn Positive (NEG=<200) A 02/18/19 00:20 Urine Cocaine Screen Negative (NEG=<300) 02/18/19 00:20 U Marijuana (THC) Screen Negative (NEG=<50) 02/18/19 00:20 Plan (1) Acute asthma exacerbation: Status: Acute Qualifiers: Asthma persistence: persistent Asthma severity: moderate Qualified Code(s): J45.41 - Moderate persistent asthma with (acute) exacerbation Plan: Pt w/ some improvement of sx still requiring supplemental O2. IV Solumedrol 80 q8h. IV Fortaz 1g q8h. CXR and CT Chest negative. Continue Duonebs and weaning O2 protocol Continue to monitor. (2) Restless leg: Status: Acute (3) MDD (major depressive disorder): Status: Acute (4) ERLINDA (generalized anxiety disorder): Status: Acute (5) Insomnia: Status: Acute (6) Osteoarthritis: Status: Acute
[2019-02-19] MEDS: ROBITUSSIN DM PO PRN (15:02)
[2019-02-19] MEDS ORDERED: COLACE CAP 100 MG PO PRN (20:39)
[2019-02-19] MEDS ORDERED: BENADRYL CAP/TAB 25 MG PO ONE (21:03)
[2019-02-19] MEDS: MIRAPEX TAB 1 MG PO SCH (21:18)
[2019-02-19] MEDS: VALIUM PO SCH (21:18)
[2019-02-19] MEDS ORDERED: NORCO 5/325 MG TAB PO ONE (21:41)
[2019-02-19] MEDS ORDERED: NORCO 5/325 MG TAB ONE (21:49)
[2019-02-20] MEDS: DUONEB 0.5 MG/3 MG NEB SCH ×4 (00:50→12:19)
[2019-02-20] MEDS: SOLU-Medrol 40 MG VIAL IVP SCH ×2 (01:30→08:36)
[2019-02-20] MEDS: FORTAZ or TAZICEF VIAL INJ 1 G in NS 100 ML IV + SPIKE MINIBAG* 100 ML IV SCH ×2 (06:44→13:55)
[2019-02-20] MEDS: CYMBALTA PO SCH (08:34)
[2019-02-20] MEDS: ZESTRIL TAB 5 MG PO SCH (08:34)
[2019-02-20] MEDS: ABILIFY PO SCH (08:35)
[2019-02-20] MEDS: CARDIZEM CD 240 MG 24-HR PO SCH (08:35)
[2019-02-20] MEDS: COREG TAB 12.5 MG PO SCH (08:36)
[2019-02-20] MEDS: TUSSIONEX PENNKINETIC SUSP PO PRN (08:36)
[2019-02-20] MEDS: MOBIC TAB 15 MG PO SCH (08:36)
[2019-02-20 12:25] VITALS: BP 132/73
[2019-02-20] MEDS: ROBITUSSIN DM PO PRN (14:01)
--- NOTE | 2019-02-21 10:24 | W.DIS.FURT ---
Summary of Discharge Discharge Summary of Date Date of Exam: 02/20/19 Admission Date Date of Admission: 02/17/19 Admission Diagnosis Hospital Course: Pt is a 38 yo f pmhx of Asthma, COPD, HTN(pHTN), ERLINDA/MDD admitted for respiratory distress and COPD/ acute asthma exacerbation. She initially required supplemental O2 that was gradually tapered off on improvement in respiratory status by treatments of Duonebs, IV Solumedrol, and IV Fortaz. On day of discharge vitals stable, minimal wheezing on exam, ambulating without supplemental O2 with pulse ox at 95%. Pt was discharged with Z-pack and oral prednisone course. She was instructed to follow up with pcp within 1 week. 1) Acute asthma exacerbation: CXR and CT Chest negative. (2) Restless leg (3) MDD (major depressive disorder) (4) ERLINDA (generalized anxiety disorder) (5) Insomnia (6) Osteoarthritis Vital Signs: Vital Signs (72 hours) 02/18/19 12:00 02/18/19 12:10 02/18/19 16:00 Temperature 97.5 F L 97.3 F L Pulse Rate 79 Pulse Rate [Right Brachial] 82 81 Respiratory Rate 18 18 Blood Pressure [Left Arm] 103/61 126/56 O2 Sat by Pulse Oximetry 94 L 96 94 L 02/18/19 16:19 02/18/19 20:00 02/18/19 21:12 Temperature 97.7 F Pulse Rate 71 79 Pulse Rate [Right Brachial] 69 Respiratory Rate 18 Blood Pressure [Left Arm] 134/59 O2 Sat by Pulse Oximetry 95 97 96 02/19/19 00:00 02/19/19 04:00 02/19/19 08:00 Temperature 97.7 F 97.6 F 97.5 F L Pulse Rate Pulse Rate [Right Brachial] 68 63 76 Respiratory Rate 20 20 18 Blood Pressure [Left Arm] 143/73 151/74 134/72 O2 Sat by Pulse Oximetry 97 93 L 96 02/19/19 09:02 02/19/19 10:15 02/19/19 10:45 Temperature Pulse Rate 87 Pulse Rate [Right Brachial] Respiratory Rate 18 18 Blood Pressure [Left Arm] O2 Sat by Pulse Oximetry 98 02/19/19 12:00 02/19/19 12:06 02/19/19 16:00 Temperature 97.5 F L 97.7 F Pulse Rate 67 Pulse Rate [Right Brachial] 68 72 Respiratory Rate 18 18 Blood Pressure [Left Arm] 113/62 132/68 O2 Sat by Pulse Oximetry 95 97 93 L 02/19/19 17:03 02/19/19 20:00 02/19/19 21:22 Temperature 97.7 F Pulse Rate 66 72 Pulse Rate [Right Brachial] 69 Respiratory Rate 18 Blood Pressure [Left Arm] 135/64 O2 Sat by Pulse Oximetry 96 95 93 L 02/19/19 21:59 02/20/19 00:00 02/20/19 04:00 Temperature 97.7 F 97.7 F Pulse Rate Pulse Rate [Right Brachial] 61 65 Respiratory Rate 20 20 18 Blood Pressure [Left Arm] 120/67 114/66 O2 Sat by Pulse Oximetry 95 96 02/20/19 08:00 02/20/19 08:29 02/20/19 12:00 Temperature 97.4 F L 97.6 F Pulse Rate 78 Pulse Rate [Right Brachial] 69 64 Respiratory Rate 20 18 Blood Pressure [Left Arm] 132/61 132/73 O2 Sat by Pulse Oximetry 96 96 93 L 02/20/19 12:19 Temperature Pulse Rate 63 Pulse Rate [Right Brachial] Respiratory Rate Blood Pressure [Left Arm] O2 Sat by Pulse Oximetry 95 Labs: Laboratory Last Values WBC 10.6 X10^3/uL (3.6-10.0) H 02/18/19 05:04 RBC 4.83 X10^6/uL (3.5-5.4) 02/18/19 05:04 Hgb 12.3 g/dL (12.0-16.0) 02/18/19 05:04 Hct 38.5 % (36.0-47.0) 02/18/19 05:04 MCV 79.7 fL (80.0-100.0) L 02/18/19 05:04 MCH 25.4 pg (27.0-34.0) L 02/18/19 05:04 MCHC 31.9 g/dL (33.0-35.0) L 02/18/19 05:04 RDW 15.6 % (11.6-16.5) 02/18/19 05:04 Plt Count 380 X10^3/uL (150.0-450.0) 02/18/19 05:04 Plt Count Comment Adequate (ADEQUATE) 02/18/19 05:04 MPV 7.2 fL (7.4-11.0) L 02/18/19 05:04 Neut % (Auto) 92.8 % (42.0-75.0) H 02/18/19 05:04 Lymph % (Auto) 6.0 % (21.0-51.0) L 02/18/19 05:04 [place] % (Auto) 1.1 % (0.0-13.0) 02/18/19 05:04 Eos % (Auto) 0.0 % (0.9-2.9) L 02/18/19 05:04 Baso % (Auto) 0.1 % (0.2-1.0) L 02/18/19 05:04 Neut # (Auto) 9.9 x10^3/uL (2.2-4.8) H 02/18/19 05:04 Lymph # (Auto) 0.6 X10^3/uL (1.3-2.9) L 02/18/19 05:04 [place] # (Auto) 0.1 x10^3/uL (0.3-0.8) L 02/18/19 05:04 Eos # (Auto) 0.0 x10^3/uL (0.0-0.2) 02/18/19 05:04 Baso # (Auto) 0.0 X10^3/uL (0.0-0.1) 02/18/19 05:04 Absolute Nucleated RBC 0.0 /100WBC 02/18/19 05:04 Total Counted 100 02/18/19 05:04 Neutrophils % (Manual) 90 % (39-76) H 02/18/19 05:04 Band Neutrophils % 2 % (0-10) 02/18/19 05:04 Lymphocytes % (Manual) 5 % (13-43) L 02/18/19 05:04 Monocytes % (Manual) 3 % (4-9) L 02/18/19 05:04 Plt Morphology Comment Normal (NORMAL) 02/18/19 05:04 RBC Morphology Abnormal (NORMAL) A 02/18/19 05:04 Hypochromasia Slight A 02/18/19 05:04 D-Dimer 182 ng/mL (0-400) 02/17/19 20:59 Sample Site Rrad 02/17/19 23:04 ABG pH 7.450 (7.35-7.45) 02/17/19 23:04 ABG pCO2 33.0 mmHg (35.0-45.0) L 02/17/19 23:04 ABG pO2 66.0 mmHg (80.0-100.0) L 02/17/19 23:04 ABG HCO3 22.9 mmol/L (22-26) 02/17/19 23:04 ABG O2 Saturation 94.0 % (90-100) 02/17/19 23:04 ABG Base Excess -0.5 mmol/L (-2.0-2.0) 02/17/19 23:04 Adam Test Pos 02/17/19 23:04 A-a Gradient 42.0 mmHg 02/17/19 23:04 FiO2 21.0 02/17/19 23:04 Blood Gas Comments Alysha abg well-mtf 02/17/19 23:04 Sodium 140 mmol/L (136-145) 02/19/19 04:15 Corrected Sodium 141 mmol/L (136-145) 02/19/19 04:15 Potassium 4.1 mmol/L (3.5-5.1) 02/19/19 04:15 Chloride 105 mmol/L (98-107) 02/19/19 04:15 Carbon Dioxide 23.4 mmol/L (21-32) 02/19/19 04:15 BUN 26 mg/dL (7-18) H 02/19/19 04:15 Creatinine 0.89 mg/dL (0.55-1.02) 02/19/19 04:15 Est GFR (MDRD) Af Amer > 60 (>60) 02/19/19 04:15 Est GFR (MDRD) Non-Af > 60 (>60) 02/19/19 04:15 Glucose 145 mg/dL (65-99) H 02/19/19 04:15 POC Glucose (mg/dL) 110 mg/dL (65-99) H 02/20/19 12:02 Calcium 8.2 mg/dL (8.5-10.1) L 02/19/19 04:15 Corrected Calcium TNP 02/18/19 05:04 Magnesium 2.4 mg/dL (1.7-2.9) 02/18/19 05:04 Total Bilirubin 0.20 mg/dL (0.2-1.0) 02/18/19 05:04 AST 12 Units/L (15-37) L 02/18/19 05:04 ALT 19 Units/L (12-78) 02/18/19 05:04 Alkaline Phosphatase 82 Units/L (46-116) 02/18/19 05:04 Creatine Kinase 113 Units/L (26-192) 02/18/19 11:15 CK-MB (CK-2) < 1.0 ng/mL (0-4.0) 02/18/19 11:15 CK/CKMB % Calc 0.9 % (<4) 02/18/19 11:15 Troponin I < 0.02 ng/mL (0-1.5) 02/18/19 11:15 Total Protein 7.0 g/dL (6.4-8.2) 02/18/19 05:04 Albumin 3.5 g/dL (3.4-5.0) 02/18/19 05:04 Globulin 3.5 g/dL (2.5-4.5) 02/18/19 05:04 Albumin/Globulin Ratio 1.0 Ratio (1.1-2.1) L 02/18/19 05:04 Amylase 37 Units/L (25-115) 02/17/19 20:59 Lipase 109 Units/L (73-393) 02/17/19 20:59 Specimen Type Clean catch urine 02/18/19 00:20 Urine Color Yellow (YELLOW) 02/18/19 00:20 Urine Appearance Clear (CLEAR) 02/18/19 00:20 Urine pH 5.0 (5.0 - 8.0) 02/18/19 00:20 Ur Specific [place] 1.015 (1.000-1.030) 02/18/19 00:20 Urine Protein Negative (NEGATIVE) 02/18/19 00:20 Urine Glucose (UA) Negative (NEGATIVE) 02/18/19 00:20 Urine Ketones Negative (NEGATIVE) 02/18/19 00:20 Urine Occult Blood Negative (NEGATIVE) 02/18/19 00:20 Urine Nitrite Negative (NEGATIVE) 02/18/19 00:20 Urine Bilirubin Negative (NEGATIVE) 02/18/19 00:20 Urine Urobilinogen Normal (NORMAL) 02/18/19 00:20 Ur Leukocyte Esterase Negative (NEGATIVE) 02/18/19 00:20 Urine Opiates Screen Negative (NEG=<300) 02/18/19 00:20 Urine Methadone Screen Negative (NEG=<300) 02/18/19 00:20 Ur Barbiturates Screen Negative (NEG=<200) 02/18/19 00:20 Ur Phencyclidine Scrn Negative (NEG=<25) 02/18/19 00:20 Ur Amphetamines Screen Negative (NEG=<1000) 02/18/19 00:20 U Benzodiazepines Scrn Positive (NEG=<200) A 02/18/19 00:20 Urine Cocaine Screen Negative (NEG=<300) 02/18/19 00:20 U Marijuana (THC) Screen Negative (NEG=<50) 02/18/19 00:20 Reason For Visit: RESPIRATORY DISTRESS,COPD EXACERBATION,FAILED Discharge Date Discharge Date: 02/20/19 Discharge Diagnosis All Active Problems (Updated 02/21/19 @ 10:36 by Anuj Perez) COPD exacerbation (Acute) Osteoarthritis (Chronic) Insomnia (Chronic) ERLINDA (generalized anxiety disorder) (Chronic) MDD (major depressive disorder) (Chronic) Restless leg (Chronic) Headache (Acute) Dyspnea, unspecified (Acute) Acute asthma exacerbation (Acute) Bronchitis (Acute) Respiratory distress (Acute) Plan of Treatment: Continue with present treatment and follow up plan. Pt is to keep follow up appointment as instructed and take medications as ordered. Discharge Medications Discharge Medications: levofloxacin [From Levaquin] Allergy (Verified 02/17/19 10:17) sulfamethoxazole [From Bactrim] Allergy (Verified 02/17/19 10:17) trimethoprim [From Bactrim] Allergy (Verified 02/17/19 10:17) CONTINUE taking the following medications Nucala 100 mg SUBCUT MONTHLY 02/17/19 [History] aripiprazole [Abilify] 5 mg PO DAILY 02/17/19 [History] diazepam [Valium] 5 mg PO HS 02/17/19 [History] diltiazem HCl [Cartia XT] 240 mg PO DAILY 02/17/19 [History] diphenhydramine HCl [Benadryl] 25 mg PO QHS 02/17/19 [History] duloxetine [Cymbalta] 60 mg PO DAILY 02/17/19 [History] lisinopril [Zestril] 2.5 mg PO DAILY 02/17/19 [History] meloxicam [Mobic] 15 mg PO DAILY 02/17/19 [History] pramipexole [Mirapex] 0.5 mg PO HS 02/17/19 [History] New Prescriptions azithromycin See Rx Instructions .ROUTE .COMPLEX #6 tab 02/20/19 [Rx] hydrocodone-chlorpheniramine 5 ml PO Q12H PRN 10 Days #100 ml 02/20/19 [Rx] prednisone 40 mg PO DAILY 5 Days #10 tab 02/20/19 [Rx] Follow up and Referral Follow Up: 1 Week Discharge Disposition Discharge Disposition: Home
== END 2019-02-20 15:20 | disposition home or self-care (01) ==
LOC: ER 10:16 → MED/SURG 10:16 → ER 14:20 → MED/SURG 23:40
PROVIDERS: ADMIT Family Medicine; ATTEND Family Medicine
DX: J44.1 Chronic obstructive pulmonary disease with (acute) exacerbation; F32.9 Major depressive disorder, single episode, unspecified; I10 Essential (primary) hypertension; G25.81 Restless legs syndrome; F41.1 Generalized anxiety disorder; I25.10 Atherosclerotic heart disease of native coronary artery without angina pectoris; J45.41 Moderate persistent asthma with (acute) exacerbation; G47.00 Insomnia, unspecified; R06.02 Shortness of breath; E78.2 Mixed hyperlipidemia; R51 Headache; R42 Dizziness and giddiness; M19.90 Unspecified osteoarthritis, unspecified site
CPT/HCPCS: 36415; 36600; 70450; 71010; 71045; 80048; 80053; 80307; 81003; 82150; 82550; 82553; 82803; 83690; 83735; 84484; 85025; 85378; 87070; 87086; 87205; 94640; 94760; 96365; 96374; 96375; 99283; 99284; A4216; A4222; G0378; G0434; J0400; J0696; J0713; J1200; J1642; J1885; J2405; J2765; J2920; J2930; J3490; J7030; J7050; J7620

== ENCOUNTER 2020-09-12 17:33 | Observation (INO) ==
[2020-09-12 17:43] VITALS: BMI 48.8
[2020-09-12] MEDS ORDERED: NS 1000 ML 1,000 ML IV ONE (18:18)
[2020-09-12] MEDS ORDERED: PROTONIX INJ 40 MG VIAL IVP ONE (18:18)
[2020-09-12] MEDS ORDERED: ZOFRAN INJ 4 MG VIAL IVP ONE ×2 (18:18→19:25)
--- NOTE | 2020-09-12 18:18 | DR.NAUSEAF ---
HPI Time Seen Time Seen by Provider: 09/12/20 18:17 Primary Care Physician Primary Care Physician: Isaiah Galeano HPI Comment HPI Comment: PATIENT WITH A HISTORY OF LAP BAND SURGERY 2008, AND PANCREATITIS COMPLAINS OF FREQUENT EMESIS AFTER EATING OR DRINKING X 2 DAYS. UNABLE TO KEEP MEDICATIONS DOWN. Complaints Chief Complaint Doctors Comments: ABDOMINAL PAIN, FREQUENT EMESIS Chief Complaint:: Pt c/o abd pain, nausea and vomiting x 4 days. She states this is due to her lap band. She had this procedure done 15 years ago and has not had it assessed since then. Self Treatment fo Chief Complaint: Pt taking zofran with no relief. Reviewed Nurses Notes Reviewed: Yes Source History Provided: Patient Mode of Arrival Mode of Arrival: Ambulatory Timing Onset of Chief Complaint: 09/09/20 Severity Number of episodes of vomiting over last 24 hours: 2 Quality Quality: Food Particles Associated Signs and Symptoms Abdominal Pain Location: Epigastric Symptoms: Abdominal Pain PMH PMH Past Medical History: Yes Past Medical History: Anxiety, Asthma, Coronary Artery Disease, Depression, Diabetes, Dyslipidemia and Hypertension Past Medical History Comment: restless leg syndrome, insomnia, chronic pain Past Surgical History: Yes Surgical History: Ortho Surgery, Tonsillectomy, Weight Loss Surgery and Other Past Surgical History Comment: port placement Family History History of Family Medical Conditions: Yes Family Medical History: Diabetes Mellitus, Cancer, [place], Coronary Artery Disease, Heart Failure, Sudden Cardiac and Hypertension Social History Does patient currently use any type of tobacco product: No Have you used tobacco products in the last 12 months: No Type of Tobacco Use: None Does any household member use tobacco: No Alcohol Use: None Do you use any recreational Drugs:: No Lives With: Family Lives Where: Home Infectious screening In the last 2 months have you had wt loss of >10#?: NO Have you had fever, night sweats or hemotysis?: No Have you traveled outside the country in the last 6 months?: No Isolation: Standard ROS Review of Systems Constitutional: No Symptoms Reported Eyes: No Symptoms Reported ENTM: No Symptoms Reported Respiratoy: No Symptoms Reported Cardiovascular: No Symptoms Reported Gastrointestinal/Abdominal: See HPI, Abdominal Pain, Nausea and Vomiting Genitourinary: No Symptoms Reported Neurological: No Symptoms Reported Musculoskeletal: No Symptoms Reported Integumentary: No Symptoms Reported Hematologic/Lymphatic: No Symptoms Reported Endocrine: No Symptoms Reported Psychiatric: No Symptoms Reported All Other Systems: Reviewed and Negative PE Vital Signs Vitals: Temperature 98.4 F Pulse Rate 108 Respiratory Rate 22 Blood Pressure [Left Arm] 128/87 Blood Pressure [Right Arm] 139/85 Blood Pressure 122/81 O2 Sat by Pulse Oximetry 97 General Limitations: No Limitations General Appearance: Alert and In No Apparent Distress Head Head Exam: Normal Inspection and Atraumatic Eyes Eye exam: Normal Appearance, PERRL and EOMI ENT ENT Exam: Normal Exam and Normal Oropharynx Neck Neck Exam: Normal Inspection and Full ROM Chest Chest Inspection: Normal Inspection and Symmetric Chest Wall Rise Respiratory Respiratory Exam: Normal Lung Sounds Bilat Respiratory Exam: Bilateral: Clear to Auscultation Cardiovascular Cardiovascular Exam: Regular Rate and Normal Rhythm Abdominal Exam Abdominal Exam: Normal Inspection, Normal Bowel Sounds, Soft and Tenderness (EPIGASTRIC AND INFRAUMBILICAL TENDERNESS) Abdominal Tenderness: Epigastrium and Suprapubic Back Back Exam: Normal Inspection and Full ROM Neurologic Neurological Exam: Alert, Oriented X3, CN II-XII Intact and Normal Gait MDM Differential Diagnosis Differential Diagnosis Comment: ACUTE GASTRITIS, SMALL BOWEL OBSTRUCTION, PEPTIC ULCER DISEASE, ACUTE PANCR COURSE Treatment Treatment: IV NORMAL SALINE 1 LITER BOLUS, ZOFRAN 4MG, PROTONIX 40MG IV, ZOFRAN 4MG, MORPHINE 4MG IV, FOLLOWED BY 2ND DOSE MORPHINE 4MG IV Reevaluation 1st: Unchanged Consultation Call Returned: 20:45 Consultation Comments: DISCUSSED FINDINGS WITH DR RIOS FOR ADMIT TO OBSERVATION ROR Labs Reviewed Laboratory Results Reviewed?: Yes Result Diagrams: 09/12/20 18:56 09/12/20 18:56 Laboratory: WBC 10.0 X10^3/uL (3.6-10.0) 09/12/20 18:56 RBC 5.14 X10^6/uL (3.5-5.4) 09/12/20 18:56 Hgb 12.5 g/dL (12.0-16.0) 09/12/20 18:56 Hct 38.8 % (36.0-47.0) 09/12/20 18:56 MCV 75.3 fL (80.0-100.0) L 09/12/20 18:56 MCH 24.3 pg (27.0-34.0) L 09/12/20 18:56 MCHC 32.3 g/dL (33.0-35.0) L 09/12/20 18:56 RDW 17.0 % (11.6-16.5) H 09/12/20 18:56 Plt Count 580 X10^3/uL (150.0-450.0) H 09/12/20 18:56 MPV 7.0 fL (7.4-11.0) L 09/12/20 18:56 Neut % (Auto) 67.7 % (42.0-75.0) 09/12/20 18:56 Lymph % (Auto) 19.9 % (21.0-51.0) L 09/12/20 18:56 [place] % (Auto) 9.1 % (0.0-13.0) 09/12/20 18:56 Eos % (Auto) 2.1 % (0.9-2.9) 09/12/20 18:56 Baso % (Auto) 1.2 % (0.2-1.0) H 09/12/20 18:56 Neut # (Auto) 6.8 x10^3/uL (2.2-4.8) H 09/12/20 18:56 Lymph # (Auto) 2.0 X10^3/uL (1.3-2.9) 09/12/20 18:56 [place] # (Auto) 0.9 x10^3/uL (0.3-0.8) H 09/12/20 18:56 Eos # (Auto) 0.2 x10^3/uL (0.0-0.2) 09/12/20 18:56 Baso # (Auto) 0.1 X10^3/uL (0.0-0.1) 09/12/20 18:56 Absolute Nucleated RBC 0.1 /100WBC 09/12/20 18:56 Sodium 140 mmol/L (136-145) 09/12/20 18:56 Corrected Sodium TNP 09/12/20 18:56 Potassium 3.7 mmol/L (3.5-5.1) 09/12/20 18:56 Chloride 101 mmol/L (98-107) 09/12/20 18:56 Carbon Dioxide 28.3 mmol/L (21-32) 09/12/20 18:56 BUN 16 mg/dL (7-18) 09/12/20 18:56 Creatinine 1.11 mg/dL (0.55-1.02) H 09/12/20 18:56 Est GFR (MDRD) Af Amer > 60 (>60) 09/12/20 18:56 Est GFR (MDRD) Non-Af 58 (>60) L 09/12/20 18:56 Glucose 94 mg/dL (65-99) 09/12/20 18:56 Calcium 9.3 mg/dL (8.5-10.1) 09/12/20 18:56 Corrected Calcium TNP 09/12/20 18:56 Total Bilirubin 0.20 mg/dL (0.2-1.0) 09/12/20 18:56 AST 13 Units/L (15-37) L 09/12/20 18:56 ALT 22 Units/L (12-78) 09/12/20 18:56 Alkaline Phosphatase 110 Units/L (46-116) 09/12/20 18:56 Total Protein 7.8 g/dL (6.4-8.2) 09/12/20 18:56 Albumin 3.7 g/dL (3.4-5.0) 09/12/20 18:56 Globulin 4.1 g/dL (2.5-4.5) 09/12/20 18:56 Albumin/Globulin Ratio 0.9 Ratio (1.1-2.1) L 09/12/20 18:56 Amylase 43 Units/L (25-115) 09/12/20 18:56 Lipase 162 Units/L (73-393) 09/12/20 18:56 HCG, Qual Negative <10 mIU/mL 09/12/20 18:56 Specimen Type Clean catch urine 09/12/20 20:03 Urine Color Straw (YELLOW) 09/12/20 20:03 Urine Appearance Clear (CLEAR) 09/12/20 20:03 Urine pH 7.0 (5.0 - 8.0) 09/12/20 20:03 Ur Specific [place] 1.015 (1.000-1.030) 09/12/20 20:03 Urine Protein Negative (NEGATIVE) 09/12/20 20:03 Urine Glucose (UA) Negative (NEGATIVE) 09/12/20 20:03 Urine Ketones Negative (NEGATIVE) 09/12/20 20:03 Urine Occult Blood 2+ (NEGATIVE) 09/12/20 20:03 Urine Nitrite Negative (NEGATIVE) 09/12/20 20:03 Urine Bilirubin Negative (NEGATIVE) 09/12/20 20:03 Urine Urobilinogen Normal (NORMAL) 09/12/20 20:03 Ur Leukocyte Esterase Negative (NEGATIVE) 09/12/20 20:03 Urine RBC 0-2 /HPF (0-3) 09/12/20 20:03 Urine WBC 0-2 /HPF (0-5) 09/12/20 20:03 Ur Squamous Epith Cells Rare /HPF (NEGATIVE) 09/12/20 20:03 Urine Bacteria Negative /HPF (NEGATIVE) 09/12/20 20:03 Ur Culture Indicated? No/not indicated 09/12/20 20:03 XRAY XRAY Interpreted by: Radiologist (THE ABDOMINAL PELVIC CT WITHOUT CONTRAST CONSISTENT WITH STATUS POST LAP-BAND PROCEDURE, NO EVIDENCE OF SLIPPAGE. NO EVIDENCE OF ACUTE APPENDICITIS, BOWEL HERNIATION, OBSTRUCTION , COLITIS OR DIVERTICULITIS, CIRCUMFERENCTIAL THICKENING OF THE DISTAL ESOPHAGUS) Opioid Opioid Risk Tool Age (Jay box if 16-45): Yes History of Preadolescent Sexual Abuse: No Total: 1 Total Score Risk Category: Low Risk Copyright: Frank COELHO predicting aberrant behaviors Diagnosis Discharge Problem: Acute gastritis, Intractable vomiting
[2020-09-12] MEDS ORDERED: PROTONIX INJ 40 MG VIAL ONE (18:33)
[2020-09-12] MEDS ORDERED: NS 1000 ML 1,000 ML ONE ×2 (18:33→22:35)
[2020-09-12] MEDS ORDERED: ZOFRAN INJ 4 MG VIAL ONE ×2 (18:33→19:36)
[2020-09-12] MEDS ORDERED: NS 100 ML IV 100 ML IV ONE (18:38)
[2020-09-12 19:21] LABS: BASOPHILS # (AUTO) 0.1 X10^3/uL (0.0-0.1); BASOPHILS % (AUTO) 1.2 % (0.2-1.0); EOSINOPHILS # (AUTO) 0.2 x10^3/uL (0.0-0.2); EOSINOPHILS % (AUTO) 2.1 % (0.9-2.9); HEMATOCRIT 38.8 % (36.0-47.0); HEMOGLOBIN 12.5 g/dL (12.0-16.0); LYMPHOCYTES % (AUTO) 19.9 % (21.0-51.0); MEAN CORPUSCULAR HEMOGLOBIN 24.3 pg (27.0-34.0); MEAN CORPUSCULAR HGB CONC 32.3 g/dL (33.0-35.0); MEAN CORPUSCULAR VOLUME 75.3 fL (80.0-100.0); MONOCYTES # (AUTO) 0.9 x10^3/uL (0.3-0.8); MONOCYTES % (AUTO) 9.1 % (0.0-13.0); NEUTROPHILS # (AUTO) 6.8 x10^3/uL (2.2-4.8); NEUTROPHILS % (AUTO) 67.7 % (42.0-75.0); PLATELET COUNT 580 X10^3/uL (150.0-450.0); RED BLOOD COUNT 5.14 X10^6/uL (3.5-5.4)
[2020-09-12] MEDS ORDERED: MORPHINE SULFATE INJ 4 MG IVP ONE ×2 (19:25→21:00)
[2020-09-12 19:30] LABS: SERUM PREGNANCY TEST, QUAL NEGATIVE <10 mIU/mL
[2020-09-12 19:31] LABS: ALANINE AMINOTRANSFERASE 22 Units/L (12-78); ALBUMIN 3.7 g/dL (3.4-5.0); ALKALINE PHOSPHATASE 110 Units/L (46-116); AMYLASE 43 Units/L (25-115); ASPARTATE AMINO TRANSFERASE 13 Units/L (15-37); BLOOD UREA NITROGEN 16 mg/dL (7-18); CALCIUM 9.3 mg/dL (8.5-10.1); CARBON DIOXIDE 28.3 mmol/L (21-32); CHLORIDE 101 mmol/L (98-107); CREATININE 1.11 mg/dL (0.55-1.02); LIPASE 162 Units/L (73-393); SODIUM 140 mmol/L (136-145); TOTAL PROTEIN 7.8 g/dL (6.4-8.2); eGFR NON BLACK RACES 58 (>60)
[2020-09-12] MEDS ORDERED: MORPHINE SULFATE INJ 4 MG ONE (19:36)
[2020-09-12 20:15] LABS: BILIRUBIN,URINE NEGATIVE (NEGATIVE); BLOOD/HEMOGLOBIN,URINE 2+ (NEGATIVE); GLUCOSE, URINE NEGATIVE (NEGATIVE); KETONES,URINE NEGATIVE (NEGATIVE); LEUKOCYTE ESTERASE ,URINE NEGATIVE (NEGATIVE); NITRITES,URINE NEGATIVE (NEGATIVE); PROTEIN,URINE NEGATIVE (NEGATIVE); UROBILINOGEN,URINE NORMAL (NORMAL)
[2020-09-12] MEDS ORDERED: PHENERGAN INJ 25 MG IM ONE ×2 (20:25→20:27)
--- NOTE | 2020-09-12 20:27 | CT ---
EXAM: CT ABDOMEN AND PELVIS WITH INTRAVENOUS CONTRASTHISTORY: Abdominal pain. Nausea and vomiting x4 days.TECHNIQUE: Spiral axial CT images are obtained through the abdomen and pelvis without the administration of oral contrast and with the administration of intravenous contrast. Additional coronal and sagittal reformatted images are reconstructed.DOSIMETRY: Total DLP 1347.7 mGycm; CTDI 56.8 mGyCOMPARISON: CT abdomen and pelvis dated 03/26/2019.FINDINGS:GASTROINTESTINAL TRACT: Status post LAP-BAND procedure. No evidence for slippage.There is no evidence for bowel herniation, bowel obstruction, colitis or diverticulitis. A normal-appearing appendix is seen.GENITOURINARY SYSTEM: The kidneys are unremarkable. There is no ureteral calculus or stigmata of obstructive uropathy. Circumferential thickening of the distal esophagus (1.2 cm) which may represent postinflammatory change or esophagitis in the appropriate clinical setting (stable finding). The urinary bladder is grossly unremarkable for a non-dedicated exam.REPRODUCTIVE SYSTEM: There is an approximately 2.6 cm x 2.2 cm left ovarian cyst (previously 2.2 cm x 1.5 cm cyst seen, and approximately 2.3 cm x 1.7 cm right ovarian cyst (previously 2.8 cm x 2.2 cm cyst seen) presumed to represent a functional cysts in this age category, but cannot rule out pathological cystic lesions based on size criteria. Consider correlation with a followup ultrasound for further characterization as clinically warranted. The uterus and adnexa are otherwise grossly unremarkable for a CT scan. Consider follow-up dedicated imaging as clinically warranted.CT ABDOMEN: Status post cholecystectomy. The liver, spleen, pancreas, adrenal glands, aorta, and inferior vena cava are within normal limits for a CT scan. There is no intra-abdominal or retroperitoneal lymphadenopathy, free fluid, or free air seen. No abdominal herniation is noted.CT PELVIS: The visualized bony structures are within normal limits. No pelvic sidewall or inguinal lymphadenopathy is seen. No inguinal herniation is noted. No free fluid or free air is seen.LUNG BASES: The lung bases are clear.IMPRESSION:1. Approximately 2.6 cm x 2.2 cm left ovarian cyst (previously 2.2 cm x 1.5 cm cyst seen, and approximately 2.3 cm x 1.7 cm right ovarian cyst (previously 2.8 cm x 2.2 cm cyst seen) presumed to represent a functional cysts in this age category, but cannot rule out pathological cystic lesions based on size criteria. Consider correlation with a followup ultrasound for further characterization as clinically warranted.2. No evidence for renal stone disease or obstructive uropathy.3. No evidence for acute appendicitis, bowel herniation/obstruction, colitis or diverticulitis seen.4. Status post LAP-BAND procedure. No evidence for slippage.5. Circumferential thickening of the distal esophagus (1.2 cm) which may represent postinflammatory change or esophagitis in the appropriate clinical setting (stable finding).6. No free fluid, free air, mass lesions, or lymphadenopathy seen.Electronically signed by: Mary Ling (Sep 12, 2020 20:24:57)
[2020-09-12 20:35] LABS: APPEARANCE,URINE CLEAR (CLEAR); COLOR,URINE STRAW (YELLOW)
[2020-09-12 20:36] LABS: BACTERIA,URINE NEGATIVE /HPF (NEGATIVE); RBC,URINE 0-2 /HPF (0-3); SQUAMOUS EPITHELIAL CELL,UR RARE /HPF (NEGATIVE)
[2020-09-12] MEDS ORDERED: HumuLIN R SC PRN (21:13)
[2020-09-12] MEDS ORDERED: LEVSIN/MAALOX/LIDOC VISC PO ONE (21:57)
[2020-09-12] MEDS ORDERED: LEVSIN/MAALOX/LIDOC VISC ONE (21:58)
[2020-09-12] MEDS ORDERED: NS 1000 ML 1,000 ML IV SCH (22:00)
[2020-09-12] MEDS: ZOFRAN INJ 4 MG VIAL IVP PRN (23:30)
[2020-09-13] MEDS ORDERED: PHENERGAN INJ 25 MG IM ONE (00:43)
[2020-09-13] MEDS ORDERED: NORCO 5/325 MG TAB PO ONE (00:43)
[2020-09-13] MEDS ORDERED: CARAFATE PO SCH (06:30)
[2020-09-13] MEDS: ZOFRAN INJ 4 MG VIAL IVP PRN (06:52)
--- NOTE | 2020-09-13 08:19 | DR.SSS ---
SHORT STAY SUMMARY Admission Date Date of Admission: 09/12/20 Discharge Date Discharge Date: 09/13/20 Admission Diagnoses Admission Diagnoses: Gastritis Esophagitis Nausea/Vomiting Discharge Diagnoses Discharge Diagnoses: Gastritis Esophagitis Chief Complaint Chief Complaint: Nausea/Vomiting Abdominal pain History of Present Illness History of Present Illness: Pt is a 40 year old female past medical history of Asthma, COPD, HTN(pHTN), ERLINDA/MDD admitted for persistent nausea and vomiting. She reports symptoms have been occurring since Wednesday and has had some mild epigastric pain. Denies any fevers or chills. Past Medical History Past Medical History: Anxiety, Asthma, Coronary Artery Disease, Depression, Diabetes, Dyslipidemia and Hypertension Past Surgical History Surgical History: Cholecystectomy and Tonsillectomy Allergies Allergies Allergy/AdvReac Type Severity Reaction Status Date / Time levofloxacin [From Levaquin] Allergy Verified 06/01/20 22:01 nortriptyline [From Pamelor] Allergy Verified 06/01/20 22:01 Eqsecma-Lld-Wfh Reductase Allergy Verified 06/01/20 22:01 Inhibitor sulfamethoxazole Allergy Verified 06/01/20 22:01 [From Bactrim] trimethoprim [From Bactrim] Allergy Verified 06/01/20 22:01 LIQUID HYDROCODONE Allergy Uncoded 03/25/19 21:28 Medications Home Medications: levofloxacin [From Levaquin] Allergy (Verified 06/01/20 22:01) nortriptyline [From Pamelor] Allergy (Verified 06/01/20 22:01) Aejihto-Qcv-Fqq Reductase Inhibitor Allergy (Verified 06/01/20 22:01) sulfamethoxazole [From Bactrim] Allergy (Verified 06/01/20 22:01) trimethoprim [From Bactrim] Allergy (Verified 06/01/20 22:01) LIQUID HYDROCODONE Allergy (Uncoded 03/25/19 21:28) CONTINUE taking the following medications spironolactone 25 mg PO DAILY 09/13/20 [History] Family History Family Medical History: Diabetes Mellitus, Cancer, [place], Coronary Artery Disease, Heart Failure, Sudden Cardiac and Hypertension Social History Does patient currently use any type of tobacco product: No Have you used tobacco products in the last 12 months: No Type of Tobacco Use: None Does any household member use tobacco: No Alcohol Use: None Drug Use: None Review of Systems Constitutional: denies Fever, Chills and Weakness Eyes: No Symptoms Reported ENT: No Symptoms Reported Respiratory: No Symptoms Reported Cardiovascular: No Symptoms Reported Gastrointestinal: Nausea, Vomiting and Abdominal Pain Genitourinary: No Symptoms Reported Musculoskeletal: No Symptoms Reported Skin: No Symptoms Reported Neurological: No Symptoms Reported Physical Exam Vital Signs: Last Vital Signs Temp 97.6 F 09/13/20 04:40 Pulse 60 09/13/20 04:40 Resp 16 09/13/20 04:40 BP 125/80 09/13/20 04:40 Pulse Ox 97 09/13/20 04:40 Oriented: Normal Eyes: Normal Ear: Normal Nose: Normal Throat: Normal Respiratory: Clear Throughout Cardiovascular: Normal Auscultation: Bowel Sounds: Normal Palpation: Normal Tenderness: Normal Skin: Normal Musculoskeletal: Normal Psychiatric: Normal Mood Description: Calm Speech Pattern: Clear Labs Labs: Laboratory Last Values WBC 10.0 X10^3/uL (3.6-10.0) 09/12/20 18:56 RBC 5.14 X10^6/uL (3.5-5.4) 09/12/20 18:56 Hgb 12.5 g/dL (12.0-16.0) 09/12/20 18:56 Hct 38.8 % (36.0-47.0) 09/12/20 18:56 MCV 75.3 fL (80.0-100.0) L 09/12/20 18:56 MCH 24.3 pg (27.0-34.0) L 09/12/20 18:56 MCHC 32.3 g/dL (33.0-35.0) L 09/12/20 18:56 RDW 17.0 % (11.6-16.5) H 09/12/20 18:56 Plt Count 580 X10^3/uL (150.0-450.0) H 09/12/20 18:56 MPV 7.0 fL (7.4-11.0) L 09/12/20 18:56 Neut % (Auto) 67.7 % (42.0-75.0) 09/12/20 18:56 Lymph % (Auto) 19.9 % (21.0-51.0) L 09/12/20 18:56 [place] % (Auto) 9.1 % (0.0-13.0) 09/12/20 18:56 Eos % (Auto) 2.1 % (0.9-2.9) 09/12/20 18:56 Baso % (Auto) 1.2 % (0.2-1.0) H 09/12/20 18:56 Neut # (Auto) 6.8 x10^3/uL (2.2-4.8) H 09/12/20 18:56 Lymph # (Auto) 2.0 X10^3/uL (1.3-2.9) 09/12/20 18:56 [place] # (Auto) 0.9 x10^3/uL (0.3-0.8) H 09/12/20 18:56 Eos # (Auto) 0.2 x10^3/uL (0.0-0.2) 09/12/20 18:56 Baso # (Auto) 0.1 X10^3/uL (0.0-0.1) 09/12/20 18:56 Absolute Nucleated RBC 0.1 /100WBC 09/12/20 18:56 Sodium 140 mmol/L (136-145) 09/12/20 18:56 Corrected Sodium TNP 09/12/20 18:56 Potassium 3.7 mmol/L (3.5-5.1) 09/12/20 18:56 Chloride 101 mmol/L (98-107) 09/12/20 18:56 Carbon Dioxide 28.3 mmol/L (21-32) 09/12/20 18:56 BUN 16 mg/dL (7-18) 09/12/20 18:56 Creatinine 1.11 mg/dL (0.55-1.02) H 09/12/20 18:56 Est GFR (MDRD) Af Amer > 60 (>60) 09/12/20 18:56 Est GFR (MDRD) Non-Af 58 (>60) L 09/12/20 18:56 Glucose 94 mg/dL (65-99) 09/12/20 18:56 POC Glucose (mg/dL) 94 mg/dL (65-99) 09/13/20 06:04 Calcium 9.3 mg/dL (8.5-10.1) 09/12/20 18:56 Corrected Calcium TNP 09/12/20 18:56 Total Bilirubin 0.20 mg/dL (0.2-1.0) 09/12/20 18:56 AST 13 Units/L (15-37) L 09/12/20 18:56 ALT 22 Units/L (12-78) 09/12/20 18:56 Alkaline Phosphatase 110 Units/L (46-116) 09/12/20 18:56 Total Protein 7.8 g/dL (6.4-8.2) 09/12/20 18:56 Albumin 3.7 g/dL (3.4-5.0) 09/12/20 18:56 Globulin 4.1 g/dL (2.5-4.5) 09/12/20 18:56 Albumin/Globulin Ratio 0.9 Ratio (1.1-2.1) L 09/12/20 18:56 Amylase 43 Units/L (25-115) 09/12/20 18:56 Lipase 162 Units/L (73-393) 09/12/20 18:56 HCG, Qual Negative <10 mIU/mL 09/12/20 18:56 Specimen Type Clean catch urine 09/12/20 20:03 Urine Color Straw (YELLOW) 09/12/20 20:03 Urine Appearance Clear (CLEAR) 09/12/20 20:03 Urine pH 7.0 (5.0 - 8.0) 09/12/20 20:03 Ur Specific [place] 1.015 (1.000-1.030) 09/12/20 20:03 Urine Protein Negative (NEGATIVE) 09/12/20 20:03 Urine Glucose (UA) Negative (NEGATIVE) 09/12/20 20:03 Urine Ketones Negative (NEGATIVE) 09/12/20 20:03 Urine Occult Blood 2+ (NEGATIVE) 09/12/20 20:03 Urine Nitrite Negative (NEGATIVE) 09/12/20 20:03 Urine Bilirubin Negative (NEGATIVE) 09/12/20 20:03 Urine Urobilinogen Normal (NORMAL) 09/12/20 20:03 Ur Leukocyte Esterase Negative (NEGATIVE) 09/12/20 20:03 Urine RBC 0-2 /HPF (0-3) 09/12/20 20:03 Urine WBC 0-2 /HPF (0-5) 09/12/20 20:03 Ur Squamous Epith Cells Rare /HPF (NEGATIVE) 09/12/20 20:03 Urine Bacteria Negative /HPF (NEGATIVE) 09/12/20 20:03 Ur Culture Indicated? No/not indicated 09/12/20 20:03 Assessment/Plan (1) Esophagitis: (2) Gastritis: (3) Nausea & vomiting: Hospital Course Hospital Course: Pt is a 40 year old female past medical history of Asthma, COPD, HTN(pHTN), ERLINDA/MDD admitted after persistent nausea and vomiting. She reports symptoms have been occurring since Wednesday and has had some mild epigastric pain. Denies any fevers or chills. Labs/imaging: Wbc 10, Hgb 12.5, Plt 580, Na 140, K 3.7, Creatinine 1.11, Glucose 94, AST 13, ALT 22, ALP 110, UA negative. CTAP was obtained and revealed bilateral ovarian cysts and esophagitis. Pt was treated with IVF, anti-emetics. On exam pt has improvement of symptoms. Labs unremarkable. Pt has PPI at home, instructed to continue, rx carafate and pepcid to continue. She has outpatient follow up with Dr Valencia early next week, recommend she go to appointment for evaluation of esophagitis. Pt discharged in stable condition, instructed to follow up with pcp in 3-5 days. Discharge Medications Discharge Medications: Home Medication List spironolactone 25 mg PO DAILY 09/13/20 [History] Prescriptions: Discharge Disposition Discharge Disposition: Home
[2020-09-13] MEDS ORDERED: ABILIFY PO SCH (09:00)
[2020-09-13] MEDS ORDERED: COREG TAB 12.5 MG PO SCH (09:00)
[2020-09-13] MEDS ORDERED: CYMBALTA PO SCH (09:00)
[2020-09-13] MEDS ORDERED: ZESTRIL TAB 5 MG PO SCH (09:00)
[2020-09-13] MEDS ORDERED: CARDIZEM CD 240 MG 24-HR PO SCH (09:00)
[2020-09-13] MEDS ORDERED: PROTONIX INJ 40 MG VIAL IVP SCH (09:00)
[2020-09-13] MEDS ORDERED: PEPCID TAB 20 MG PO SCH (09:00)
[2020-09-13 12:02] VITALS: BP 125/79
== END 2020-09-13 11:50 | disposition home or self-care (01) ==
LOC: ER 17:37 → ICU 17:37 → MED/SURG 09-13 07:04
PROVIDERS: ADMIT Family Medicine; ATTEND Family Medicine
DX: I10 Essential (primary) hypertension; Z98.84 Bariatric surgery status; F41.8 Other specified anxiety disorders; E11.65 Type 2 diabetes mellitus with hyperglycemia; K20.90 Esophagitis, unspecified without bleeding; R11.2 Nausea with vomiting, unspecified; I25.10 Atherosclerotic heart disease of native coronary artery without angina pectoris; R10.84 Generalized abdominal pain; J44.9 Chronic obstructive pulmonary disease, unspecified; K29.70 Gastritis, unspecified, without bleeding; E78.2 Mixed hyperlipidemia